=== PATIENT | female | born 1975 | race Caucasian/White ===

== ENCOUNTER 2019-05-25 08:17 | Emergency (ER) | payer OTHER, SELFPAY ==
--- NOTE | ~2019-05-25 | XR_ITS ---
EXAMINATION: XR chest 2V EXAM DATE: 05/25/2019 09:04 INDICATION: Frontal chest pain with shortness of breath. Nausea. TECHNIQUE: Frontal and lateral projections of the chest obtained and reviewed. Comparison is made to prior examination from 06/16/2016. FINDINGS: Cardiac monitoring device. Cervical fusion hardware. The lungs are clear. There are no pl eural effusions. The cardiomediastinal silhouette is within normal limits. There is no pneumothorax suspected. The bones and soft tissues are unremarkable. No change. IMPRESSION: No acute cardiopulmonary findings. Reviewed, dictated and finalized at location B. TORIAL MANAGER
[2019-05-25 08:22] VITALS: BP 145/98; PULSE 77; RESP 14; O2SAT 100
--- NOTE | 2019-05-25 08:29 | ECG_ITS ---
Measurements Intervals [place] Rate: 76 P: 56 IN: 135 QRS: -9 QRSD: 91 T: 42 QT: 354 QTc: 399 Interpretive Statements SINUS RHYTHM INCOMPLETE RIGHT BUNDLE BRANCH BLOCK LOW QRS VOLTAGE IN PRECORDIAL LEADS BASELINE ARTIFACT- I, II, III, AVR, AVL, V4-V6 BORDERLINE ECG Electronically Signed On 05-25-2019 8:37:37 BUILD TECHNICIAN by Sheng Adkins D.O.
--- NOTE | 2019-05-25 08:34 | ED.CHESTPAIN ---
HPI - Chest Pain General Chief Complaint: Chest Pain Stated Complaint: chest pain Time Seen by Provider: 05/25/19 08:33 Source: patient Mode of arrival: wheelchair Limitations: no limitations History of Present Illness HPI narrative: A 44 y/o female presents to the ED, with c/o intermittent CP x a couple days, that is worse today. She describes the CP as a squeezing in the lt side of her chest and she does not note any aggravating or alleviating factors. Pt states that when the CP began today she felt shaky and began feeling nauseous and vomiting. She denies having any SOB, diarrhea, cough, chest congestion, fever, or recent illnesses. Pt notes having a similar episode to this several years ago, but the Sx subsided on their own and she does not note seeking medical treatment for it. She denies taking any medications prior to arrival for her Sx. Pt reports a PMHx of asthma and hypothyroidism and notes having an allergy to Bactrim, Augmentin and Codeine. MD complaint: chest pain Pertinent past history: asthma Onset (ago): day(s) (a couple) Timing of current episode: episodic Prior episodes: Yes (several years ago) Pain location: left chest Quality: other (squeezing) Relieving factors: nothing Exacerbating factors: nothing Associated symptoms: nausea, vomiting and other (shaky) Treatment prior to arrival: none Related Data Allergies Allergy/AdvReac Type Severity Reaction Status Date / Time hydrocodone Allergy Intermediate BLURRED Verified 06/17/16 10:57 VISION naproxen Allergy Mild Unknown Verified 05/25/19 11:53 sulfamethoxazole Allergy Mild Unknown Unverified 05/25/19 11:53 trimethoprim Allergy Mild Unknown Unverified 05/25/19 11:53 acetaminophen Allergy Unknown BLINDNESS Verified 06/17/16 10:57 FEELING amoxicillin Allergy Unknown Unknown Verified 05/25/19 11:53 budesonide Allergy Unknown Unknown Verified 05/25/19 11:53 codeine Allergy Unknown Unknown Verified 05/25/19 11:53 erythromycin base Allergy Unknown Unknown Verified 05/25/19 11:53 latex Allergy Unknown Unknown Unverified 05/25/19 11:53 oxycodone Allergy Unknown TEMPORARY Verified 06/17/16 10:57 BLINDNESS penicillin V Allergy Unknown Unknown Verified 05/25/19 11:53 Penicillins Allergy Unknown Unknown Unverified 05/25/19 11:53 Sulfa (Sulfonamide Allergy Unknown Unknown Unverified 05/25/19 11:53 Antibiotics) POTASSIUM CLAVULANATE Allergy Mild Unknown Uncoded 05/25/19 11:53 FORMOTEROL FUMARATE Allergy Unknown Unknown Uncoded 05/25/19 11:53 Review of Systems Review of Systems: All systems reviewed & are unremarkable except as noted in HPI and below Constitutional: Constitutional: Denies fever(s) Cardiovascular: Cardiovascular: Reports chest pain (lt sided, squeezing) Respiratory: Respiratory: Denies chest congestion, Denies cough and Denies dyspnea Gastrointestinal: Gastrointestinal: Denies diarrhea, Reports nausea and Reports vomiting Neurologic: Reports other (shakiness) [facility] Past Medical History Medical History (Updated 05/25/19 @ 10:59 by Blayne Sinha MD) Anxiety Asthma Lorri's disease History of gastroesophageal reflux (GERD) History of palpitations Hypothyroidism Surgical History Surgical History H/O ovarian cystectomy lt ovary History of hysterectomy History of lumpectomy of left breast History of tonsillectomy Family History Family History Father Hypertension Asthma Family history of arthritis Social History Social History Smoking status: Never smoker Alcohol intake: never Comments Implanted Holter Monitor Exam Const: General: healthy appearing and no acute distress Nutritional Appearance: well nourished HENMT: Mouth: Yes lip normal and Yes moist mucous membranes Eyes: Conjunctivae: conjunctivae normal Pupils: Equal, round and
[2019-05-25] MEDS: ONDANSETRON INJ 4 MG/2 ML VIAL IV PUSH ×2 (08:55→11:28)
[2019-05-25 09:04] LABS: Basophils Absolute Auto 0.1 K/mm3 (0.0-0.1); Basophils Percent Auto 0.4 % (0.2-1.2); Eosinophils Percent Auto 0.3 % (0-4.4); Hematocrit 45.4 % (37.0-47.0); Hemoglobin 15.2 g/dL (12.0-15.0); Immature Granulocyte Absolute 0.04 K/mm3 (0.00-0.031); Immature Granulocyte Percent A 0.3 % (0-0.5); Lymphocytes Percent Auto 13.9 % (18.3-44.2); Mean Corpuscular HGB Conc 33.5 g/dl (32-36); Mean Corpuscular Volume 92.5 fl (80-100); Mean Platelet Volume 11.2 fl (7.4-10.4); Monocytes Absolute Auto 0.6 K/mm3 (0.1-0.6); Neutrophils Absolute Auto 9.2 K/mm3 (1.3-6.7); Neutrophils Percent Auto 80.1 % (45.5-73.1); Platelet Count Result 284 k/mm3 (150-375); Red Blood Count 4.91 M/mm3 (4.2-5.4); Red Cell Distribution Width 12.9 % (11.5-14.5); White Blood Count 11.5 K/mm3 (4.5-10.0)
[2019-05-25 09:15] LABS: INR 0.9; Partial Thromboplastin Time 20.4 SECONDS (22.3-36.8); Prothrombin Time 11.5 Seconds (11.1-14.7)
[2019-05-25 09:26] LABS: Alanine Aminotransferase 24 U/L (4-35); Albumin Level 4.8 g/dL (3.5-5.1); Alkaline Phosphatase 39 U/L (38-126); Aspartate Amino Transferase 29 U/L (14-36); Bilirubin,Total 0.6 mg/dL (0.2-1.3); Blood Urea Nitrogen 22 mg/dL (7-17); Calcium 9.5 mg/dL (8.4-10.2); Carbon Dioxide 25 mmol/L (22-30); Chloride 101 mmol/L (98-107); Estimated Glomerular Filt Rate > 60; Glucose 97 mg/dL (65-105); Lipase 145 U/L (23-300); Sodium 140 mmol/L (137-145)
[2019-05-25 09:31] LABS: Troponin I < 0.012 ng/mL (0.000-0.034)
[2019-05-25 11:00] VITALS: PULSE 78
[2019-05-25 11:20] VITALS: BP 133/100; PULSE 63; RESP 21; O2SAT 100
--- NOTE | 2019-05-25 11:21 | PC.NURSE ---
Assumed pt care at this time from RAINE Kramer at bedside. Pt resting comfortably.
[2019-05-25 11:59] LABS: Troponin I < 0.012 ng/mL (0.000-0.034)
[2019-05-25 12:08] VITALS: BP 135/81; PULSE 68; RESP 16; O2SAT 100
== END 2019-05-25 12:11 | disposition home or self-care (01) ==
PROVIDERS: Emergency Provider Emergency Medicine; PCP Family Medicine
DX: R07.89 Other chest pain (principal); J45.909 Unspecified asthma, uncomplicated; E03.9 Hypothyroidism, unspecified; E06.3 Autoimmune thyroiditis; K21.9 Gastro-esophageal reflux disease without esophagitis
CPT/HCPCS: 36415; 71046; 80053; 83690; 84484; 85025; 85610; 85730; 93005; 96374; 96376; 99284; A9270; J2405

== ENCOUNTER 2019-11-03 14:51 | Outpatient (CLI) | payer OTHER, SELFPAY ==
--- NOTE | ~2019-11-03 | MM_ITS ---
EXAMINATION: MM screening [facility] BI w valerie HISTORY: Screening TECHNIQUE: Craniocaudal and mediolateral oblique 3-D tomosynthesis images were obtained and synthetic 2-D images were generated. CAD analysis was submitted and interpreted. COMPARISON: Comparison to multiple prior studies sequentially, with oldest reviewed study dated 12/2010. BREAST PARENCHYMAL COMPOSITION: There are scattered areas of fibroglandular density. FINDINGS: There is no evidence of suspicious mass, calcification, or architectural distortion to sugg est malignancy in either breast. There has been no suspicious interval change. IMPRESSION: 1. No mammographic evidence of malignancy. 2. Recommend routine screening mammography in one year. BI-RADS Category 1: Negative Reviewed, dictated and finalized at location A.
== END 2019-11-03 14:52 | disposition home or self-care (01) ==
LOC: ANHIMG 14:53
PROVIDERS: PCP Internal Medicine; Visit Provider Obstetrics & Gynecology
DX: Z12.31 Encounter for screening mammogram for malignant neoplasm of breast (principal)
CPT/HCPCS: 77063; 77067

== ENCOUNTER 2020-12-09 09:53 | Emergency (ER) | payer OTHER, SELFPAY ==
--- NOTE | ~2020-12-09 | XR_ITS ---
EXAMINATION: XR chest 2V DATE: 12/09/2020 10:04 INDICATION: Left-sided chest pain TECHNIQUE: PA and lateral views of the chest are obtained. COMPARISON: 05/25/2019 FINDINGS: The lungs are free of acute opacities. There is no pleural effusion or pneumothorax. The ca rdiomediastinal silhouette is normal. There is mild thoracic spondylosis. There are changes of anteri or fusion in the lower cervical spine. A cardiac monitoring device is implanted in the left anterior chest wall. IMPRESSION: 1. No acute cardiopulmonary abnormality. Reviewed, dictated and finalized at location A.
--- NOTE | 2020-12-09 09:54 | ECG_ITS ---
Measurements Intervals [place] Rate: 74 P: 57 ME: 135 QRS: -3 QRSD: 86 T: 29 QT: 369 QTc: 411 Interpretive Statements SINUS RHYTHM INCOMPLETE RIGHT BUNDLE BRANCH BLOCK DELAYED PRECORDIAL R/S TRANSITION LOW VOLTAGE- PRECORDIAL LEADS BASELINE ARTIFACT- I, III, AVL BORDERLINE ECG Electronically Signed On 12-09-2020 10:32:07 CDT by Sheng Adkins D.O.
[2020-12-09 10:17] VITALS: BP 123/66; PULSE 75; RESP 18; TEMP 37.1; O2SAT 100
[2020-12-09 10:53] LABS: Basophils Absolute Auto 0.1 K/mm3 (0.0-0.1); Basophils Percent Auto 1.1 % (0.2-1.2); Eosinophils Absolute Auto 0.2 K/mm3 (0-0.3); Eosinophils Percent Auto 3.3 % (0-4.4); Hematocrit 39.9 % (37.0-47.0); Hemoglobin 13.8 g/dL (12.0-15.0); Immature Granulocyte Absolute 0.01 K/mm3 (0.00-0.031); Immature Granulocyte Percent A 0.2 % (0-0.5); Lymphocytes Absolute Auto 1.52 K/mm3 (0.9-3.2); Lymphocytes Percent Auto 23.9 % (18.3-44.2); Mean Corpuscular HGB Conc 34.6 g/dl (32-36); Mean Corpuscular Hemoglobin 31.2 pg (26-34); Mean Corpuscular Volume 90.1 fl (80-100); Mean Platelet Volume 11.4 fl (7.4-10.4); Monocytes Absolute Auto 0.3 K/mm3 (0.1-0.6); Monocytes Percent Auto 4.1 % (2.6-8.5); Neutrophils Absolute Auto 4.3 K/mm3 (1.3-6.7); Neutrophils Percent Auto 67.4 % (45.5-73.1); Platelet Count Result 224 k/mm3 (150-375); Red Blood Count 4.43 M/mm3 (4.2-5.4); Red Cell Distribution Width 12.1 % (11.5-14.5); White Blood Count 6.4 K/mm3 (4.5-10.0)
[2020-12-09 11:02] LABS: INR 0.9
[2020-12-09 11:03] LABS: Partial Thromboplastin Time 29.7 SECONDS (22.3-36.8)
--- NOTE | 2020-12-09 11:13 | ED.CHESTPAIN ---
HPI - Chest Pain General Chief Complaint: Chest Pain Stated Complaint: CHEST PAIN Time Seen by Provider: 12/09/20 11:12 History of Present Illness HPI narrative: Left sided chest pain since this morning. Worsened while at work. Exacerbated by using the left arm. Tender to touch. No SOB, nausea, vomiting, cough, fever. Related Data Allergies Allergy/AdvReac Type Severity Reaction Status Date / Time hydrocodone Allergy Intermediate BLURRED Verified 12/09/20 11:48 VISION naproxen Allergy Mild Unknown Verified 12/09/20 11:48 sulfamethoxazole Allergy Mild Unknown Verified 12/09/20 11:48 trimethoprim Allergy Mild Unknown Verified 12/09/20 11:48 acetaminophen Allergy Unknown BLINDNESS Verified 12/09/20 11:48 FEELING amoxicillin Allergy Unknown Unknown Verified 12/09/20 11:48 budesonide Allergy Unknown Unknown Verified 12/09/20 11:48 codeine Allergy Unknown Unknown Verified 12/09/20 11:48 erythromycin base Allergy Unknown Unknown Verified 12/09/20 11:48 latex Allergy Unknown Unknown Verified 12/09/20 11:48 oxycodone Allergy Unknown TEMPORARY Verified 12/09/20 11:48 BLINDNESS penicillin V Allergy Unknown Unknown Verified 12/09/20 11:48 Penicillins Allergy Unknown Unknown Verified 12/09/20 11:48 Sulfa (Sulfonamide Allergy Unknown Unknown Verified 12/09/20 11:48 Antibiotics) aspirin Allergy Difficulty Verified 12/09/20 11:48 Breathing POTASSIUM CLAVULANATE Allergy Mild Unknown Uncoded 05/25/19 11:53 FORMOTEROL FUMARATE Allergy Unknown Unknown Uncoded 05/25/19 11:53 Review of Systems Review of Systems: All systems reviewed & are unremarkable except as noted in HPI and below Gastrointestinal: Gastrointestinal: Denies abdominal pain and Denies nausea Genitourinary: Genitourinary: Reports no additional female genitourinary complaints Musculoskeletal: Musculoskeletal: Denies back pain Neurologic: Reports system reviewed and no additional complaints, except as documented Psychiatric: Psychiatric: Reports anxiety PMFSH Past Medical History Medical History Anxiety Asthma Lorri's disease History of gastroesophageal reflux (GERD) History of palpitations Hypothyroidism Surgical History Surgical History H/O ovarian cystectomy lt ovary History of hysterectomy History of lumpectomy of left breast History of tonsillectomy Family History Family History Father Hypertension Asthma Family history of arthritis Social History Social History Smoking status: Never smoker Alcohol intake: never Exam Const: General: healthy appearing, no acute distress and alert Orientation/consciousness: patient oriented x3 HENMT: Head: normal to inspection Chest: Chest palpation & inspection: tenderness pectoral muscle on the left Resp: Effort & Inspection: normal respiratory effort Auscultation: clear to auscultation bilaterally, no rales, no rhonchi and no wheezes Cardio: Jugular venous distension: no JVD Rate: regular rate Rhythm: regular rhythm Heart sounds: no murmurs GI: Inspection: non-distended GI Palp: Yes Soft to palpation and No Tenderness to palpation present (GI) Skin: General skin exam: normal color Neuro: General: patient oriented x3, moves all extremities, no focal motor deficits and CN's II-XI intact bilaterally Speech: normal speech Gait exam (Neuro): Normal gait present Extrem: General: normal to inspection Psych: Appearance: well kempt Affect: Anxious affect present Course Vital Signs Vital signs: Vital Signs Temperature 37.1 C 12/09/20 10:17 Pulse Rate 75 12/09/20 10:17 Respiratory Rate 18 12/09/20 10:17 Blood Pressure 123/66 12/09/20 10:17 Pulse Oximetry 100 12/09/20 10:17 Temperature 37.1 C 12/09/20 10:17 Pulse Rate 73
[2020-12-09 11:14] LABS: Anion Gap 8 mmol/L (8-16); Blood Urea Nitrogen 16 mg/dL (7-17); Carbon Dioxide 23 mmol/L (22-30); Chloride 104 mmol/L (98-107); Estimated CRCL calculation 87 ml/min; Estimated Glomerular Filt Rate > 60; Glucose 100 mg/dL (65-110); Potassium 3.8 mmol/L (3.4-5.0); Sodium 135 mmol/L (137-145)
[2020-12-09 11:24] LABS: Troponin I < 0.012 ng/mL (0.000-0.034)
[2020-12-09] MEDS: KETOROLAC (*BKC) 60 MG/2 ML VIAL IM (11:51)
[2020-12-09 12:34] VITALS: BP 123/73; PULSE 73; RESP 18; O2SAT 100
== END 2020-12-09 12:35 | disposition home or self-care (01) ==
PROVIDERS: Emergency Medicine; Emergency Provider Emergency Medicine; PCP Internal Medicine
DX: R07.89 Other chest pain (principal); I45.10 Unspecified right bundle-branch block; R94.31 Abnormal electrocardiogram [ECG] [EKG]; E06.3 Autoimmune thyroiditis; J45.909 Unspecified asthma, uncomplicated; K21.9 Gastro-esophageal reflux disease without esophagitis; E03.9 Hypothyroidism, unspecified
CPT/HCPCS: 36415; 71046; 80048; 84484; 85025; 85610; 85730; 93005; 96372; 99284; J1885

== ENCOUNTER 2020-12-31 14:38 | Outpatient (CLI) | payer OTHER, SELFPAY ==
--- NOTE | ~2020-12-31 | MM_ITS ---
EXAMINATION: MM screening [facility] BI w valerie HISTORY: Screening mammogram TECHNIQUE: Craniocaudal and mediolateral oblique 3-D tomosynthesis images were obtained and synthetic 2-D images were generated. CAD analysis was submitted and interpreted. COMPARISON: 11/03/2019, 05/29/2016, 12/11/2014 BREAST PARENCHYMAL COMPOSITION: The breasts are heterogeneously dense, which may obscure small masses . FINDINGS: There is no evidence of suspicious mass, calcification, or architectural distortion to sugg est malignancy in either breast. There has been no suspicious interval change. IMPRESSION: 1. No mammographic evidence of malignancy. 2. Recommend routine screening mammography in one year. BI-RADS Category 1: Negative Reviewed, dictated and finalized at location A.
== END 2020-12-31 14:39 | disposition home or self-care (01) ==
PROVIDERS: PCP Internal Medicine; Visit Provider Obstetrics & Gynecology
DX: Z12.31 Encounter for screening mammogram for malignant neoplasm of breast (principal)
CPT/HCPCS: 77063; 77067

== ENCOUNTER 2022-06-10 08:19 | Emergency (ER) | payer OTHER, SELFPAY ==
--- NOTE | ~2022-06-10 | XR_ITS ---
EXAMINATION: XR chest 2V DATE: 06/10/2022 09:07 INDICATION: Chest pain. Shortness of breath. TECHNIQUE: Frontal and lateral views of the chest were obtained. COMPARISON: Chest 2 views 12/09/2020 FINDINGS: There is no pneumonia, pleural effusion, or pneumothorax. The heart size is normal. There i s a prominent right paracardial fat pad. An electronic device overlies the chest. There is an electro delfina implant in left anterior chest wall. There are changes of anterior fusion procedure in cervical s pine. IMPRESSION: 1. No acute cardiopulmonary disease. Reviewed, dictated and finalized at location A. ICE AIDE
--- NOTE | ~2022-06-10 | CT_ITS ---
Clinical Indication: Pulmonary embolus CT Scan of the Chest with Contrast: Technique: Contiguous sections were acquired throughout the chest after intravenous administration of 100 cc of Omnipaque 350. Dose reduction technique was used on this scan by utilizing automated expos ure control and iterative reconstruction technique. The dose-length product (DLP) was 325.95 mGy-cm. Findings: There is no evidence of any significant mediastinal, hilar or axillary lymphadenopathy. There is no f illing defect in the pulmonary arterial tree to suggest pulmonary embolus. There is no evidence of ao rtic dissection or aneurysm. There is no evidence of pleural or pericardial effusion. There is a 1.2 cm benign-appearing lingular nodule, with central coarse calcification. No other pulmo nary abnormality seen. Images through the upper abdomen reveal no abnormalities. Impression: No evidence of pulmonary embolus, aortic dissection, or aortic aneurysm. Benign 1.2 cm lingular nodule, as detailed above. Reviewed, dictated and finalized at [facility]. T THINNER MACHINE OPERATOR Impression: No evidence of pulmonary embolus, aortic dissection, or aortic aneurysm. Benign 1.2 cm lingular nodule, as detailed above.
[2022-06-10 08:17] VITALS: BP 122/86; PULSE 70; RESP 16; TEMP 36.8; O2SAT 100
--- NOTE | 2022-06-10 08:32 | ECG_ITS ---
Measurements Intervals [place] Rate: 66 P: 55 OR: 134 QRS: 5 QRSD: 89 T: 37 QT: 390 QTc: 410 Interpretive Statements SINUS RHYTHM BASELINE ARTIFACT- I, II, AVR, AVL NORMAL ECG COMPARED TO ECG 12/09/2020 10:09:17 NO SIGNIFICANT CHANGES Electronically Signed On 06-10-2022 9:16:32 AUTOMATION AND CONTROLS INSTRUCTOR by Sheng Adkins D.O.
[2022-06-10 08:35] VITALS: PULSE 66
[2022-06-10 08:43] LABS: Basophils Absolute Auto 0.1 K/mm3 (0.0-0.1); Eosinophils Absolute Auto 0.3 K/mm3 (0-0.3); Eosinophils Percent Auto 4.1 % (0-4.4); Hematocrit 39.3 % (37.0-47.0); Hemoglobin 13.6 g/dL (12.0-15.0); Immature Granulocyte Absolute 0.02 K/mm3 (0.00-0.031); Immature Granulocyte Percent A 0.3 % (0-0.5); Lymphocytes Absolute Auto 1.23 K/mm3 (0.9-3.2); Lymphocytes Percent Auto 20.2 % (18.3-44.2); Mean Corpuscular HGB Conc 34.6 g/dl (32-36); Mean Corpuscular Hemoglobin 31.6 pg (26-34); Mean Corpuscular Volume 91.2 fl (80-100); Mean Platelet Volume 11.1 fl (7.4-10.4); Monocytes Absolute Auto 0.4 K/mm3 (0.1-0.6); Monocytes Percent Auto 5.7 % (2.6-8.5); Neutrophils Absolute Auto 4.2 K/mm3 (1.3-6.7); Neutrophils Percent Auto 68.7 % (45.5-73.1); Platelet Count Result 198 k/mm3 (150-375); Red Blood Count 4.31 M/mm3 (4.2-5.4); Red Cell Distribution Width 12.5 % (11.5-14.5); White Blood Count 6.1 K/mm3 (4.5-10.0)
[2022-06-10 08:44] VITALS: O2SAT 100
[2022-06-10 08:49] LABS: Prothrombin Time 12.6 Seconds (11.1-14.7)
[2022-06-10 08:50] LABS: Partial Thromboplastin Time 29.7 SECONDS (22.3-36.8)
[2022-06-10 09:00] LABS: Alanine Aminotransferase 22 U/L (6-35); Albumin Level 4.1 g/dL (3.5-5.1); Alkaline Phosphatase 37 U/L (38-126); Anion Gap 3 mmol/L (8-16); Aspartate Amino Transferase 29 U/L (14-36); Bilirubin,Total 0.5 mg/dL (0.2-1.3); Blood Urea Nitrogen 16 mg/dL (7-17); Calcium 8.8 mg/dL (8.4-10.2); Carbon Dioxide 26 mmol/L (22-30); Chloride 107 mmol/L (98-107); Estimated Glomerular Filt Rate > 60; Glucose 95 mg/dL (65-110); Lipase 94 U/L (23-300); Potassium 4.1 mmol/L (3.4-5.0); Sodium 136 mmol/L (137-145); Troponin I < 0.012 ng/mL (0.000-0.034)
--- NOTE | 2022-06-10 09:24 | ED.GENADULT ---
HPI - General Adult General Chief complaint: Chest Pain Stated complaint: CP & SOB x 14 hours Time Seen by Provider: 06/10/22 08:19 History of Present Illness HPI narrative: 47-year-old female presenting to the emergency department for evaluation of left-sided chest pain. Patient states last night she was having left-sided chest pain. Patient describes this as a chest tightness. Patient reports that the symptoms did improve but then worsened again this morning at work. Patient reports she had a sensation of feeling flushed with dizziness. Patient states that she follows up with a customer experience professional at [employer]. Patient had an echo and a stress test on Wednesday for similar symptoms. Patient denies any prior history of RI. Patient denies any history of PE or DVT. Related Data Allergies Allergy/AdvReac Type Severity Reaction Status Date / Time hydrocodone Allergy Intermediate BLURRED Verified 12/09/20 11:48 VISION naproxen Allergy Mild Unknown Verified 12/09/20 11:48 sulfamethoxazole Allergy Mild Unknown Verified 12/09/20 11:48 trimethoprim Allergy Mild Unknown Verified 12/09/20 11:48 acetaminophen Allergy Unknown BLINDNESS Verified 12/09/20 11:48 FEELING amoxicillin Allergy Unknown Unknown Verified 12/09/20 11:48 budesonide Allergy Unknown Unknown Verified 12/09/20 11:48 codeine Allergy Unknown Unknown Verified 12/09/20 11:48 erythromycin base Allergy Unknown Unknown Verified 12/09/20 11:48 latex Allergy Unknown Unknown Verified 12/09/20 11:48 oxycodone Allergy Unknown TEMPORARY Verified 12/09/20 11:48 BLINDNESS penicillin V Allergy Unknown Unknown Verified 12/09/20 11:48 Penicillins Allergy Unknown Unknown Verified 12/09/20 11:48 Sulfa (Sulfonamide Allergy Unknown Unknown Verified 12/09/20 11:48 Antibiotics) aspirin Allergy Difficulty Verified 12/09/20 11:48 Breathing POTASSIUM CLAVULANATE Allergy Mild Unknown Uncoded 05/25/19 11:53 FORMOTEROL FUMARATE Allergy Unknown Unknown Uncoded 05/25/19 11:53 Review of Systems Review of Systems: CONSTITUTIONAL: See HPI EYES: Denies visual changes, redness, or discharge. ENT: Denies rhinorrhea, congestion, sore throat, or otalgia. CARDIOVASCULAR: See HPI RESPIRATORY: Denies cough or dyspnea. GASTROINTESTINAL: Denies abdominal pain, nausea, vomiting, or diarrhea. GENITOURINARY: Denies dysuria or hematuria. SKIN: Denies rash or itching. MUSCULOSKELETAL: Denies back pain, joint pain, or myalgia. NEUROLOGIC: Denies headache, numbness, or weakness. [facility] Past Medical History Medical History (Updated 06/10/22 @ 19:10 by Corbin Caicedo MD) Anxiety Asthma Lorri's disease History of gastroesophageal reflux (GERD) History of palpitations Hypothyroidism Implantable loop recorder present (12/30/12) MRSA carrier Surgical History Surgical History (Updated 03/11/22 @ 11:09 by Netta Cruz) History of breast biopsy 2008 (R) breast--benign 2012 (L) breast--benign History of dilation and curettage 12/01/12 hscope d&c/Novasure endometrial ablation/tubal ligation--benign 06/18/15 hscope d&c--abnormal bleeding History of endometrial ablation (12/01/12) hscope d&c/Novasure endometrial ablation/tubal ligation--benign History of fusion of cervical spine (~2013) C-4, C-5, C-6 History of left salpingo-oophorectomy (12/03/11) LLQ pain, left adnexal cyst History of robot-assisted laparoscopic hysterectomy (07/25/15) RA TLH--menometrorrhagia, enlarged uterine--benign findings History of tonsillectomy History of tubal ligation (12/01/12) Family History Family History (Updated 03/11/22 @ 11:10 by Netta Cruz) Father Hypertension Asthma Family history of arthritis Other Acute myocardial infarction maternal aunt Cerebrovascular accident maternal aunt Social History Social History Smoking status: Never smoker Alcohol intake: never Exam Narrative: APPEARANCE: We
[2022-06-10 09:50] VITALS: BP 122/74; PULSE 73; RESP 16; O2SAT 100
[2022-06-10 11:27] VITALS: BP 112/64; PULSE 68; RESP 14; O2SAT 100
[2022-06-10 11:57] LABS: Troponin I < 0.012 ng/mL (0.000-0.034)
[2022-06-10 12:42] VITALS: BP 110/72; PULSE 78; RESP 16; O2SAT 100
== END 2022-06-10 12:44 | disposition home or self-care (01) ==
PROVIDERS: Emergency Provider Emergency Medicine; PCP Internal Medicine
DX: R07.9 Chest pain, unspecified (principal); R42 Dizziness and giddiness; Z98.1 Arthrodesis status
CPT/HCPCS: 36415; 71046; 71275; 80053; 83690; 84484; 85025; 85610; 85730; 93005; 99284; Q9967

== ENCOUNTER 2024-03-21 12:30 | Outpatient (CLI) | payer OTHER, SELFPAY ==
--- NOTE | ~2024-03-21 | PE_ITS ---
EXAMINATION: PET skull to mid thigh DATE: 03/21/2024 15:19 INDICATION: Neck nodules. Abnormal findings on diagnostic imaging. TECHNIQUE: Blood glucose level was 88 mg/dL. 10.929 mCi of 18-fluorodeoxyglucose (18-FDG) was adminis tered i.v. Low dose computed tomography (CT) images were acquired from the base of the brain to the p roximal thighs for attenuation correction and anatomic localization. Positron emission tomography (PE T) images were acquired in the same distribution beginning 50 minutes after injection. Images includi ng fused PET/CT images were reconstructed in axial, coronal, and sagittal planes. Automated exposure control technique was employed. The dose-length product was 1210.15mGy-cm. COMPARISON: Chest CT dated 06/10/2022 FINDINGS: Head/neck: There is symmetric increased activity in the oral cavity, lingual tonsils, parotid glands, submandib ular glands, laryngeal muscles and ocular muscles without CT correlate, likely physiologic. No pathol ogically enlarged cervical lymphadenopathy or suspicious foci of increased FDG uptake in the visualiz ed head or neck. Chest: Centrally calcified nodule at the lingula consistent with old granulomatous disease. There is mild at electasis the medial aspect of both the lingula and right middle lobes. No suspicious pulmonary nodul es, pneumonia, pulmonary edema or pleural effusion. Heart size is normal. No pericardial or pleural e ffusion. Thoracic aorta is normal in caliber. No pathologically enlarged or FDG avid thoracic lymphad enopathy. Left pectoral subcutaneous implantable manager coding. Abdomen/pelvis/proximal thighs: Physiologic renal accumulation and excretion of FDG activity in the kidneys, bladder and along portio ns of ureters. Normal degree and heterogenous pattern of increased uptake throughout the liver withou t radiologic correlate or dominant FDG avid lesion. Small splenic calcification also consistent with old granulomatous disease. The gallbladder, pancreas and bilateral adrenal glands are normal. Mild up take scattered throughout the bowels without radiologic correlate, also likely physiologic. Normal ap pendix. The uterus is not identified and has likely been surgically resected. Mild uptake overlying t he bilateral greater trochanters consistent with trochanteric bursitis. No other abnormal foci of inc reased FDG uptake or pathologically enlarged lymphadenopathy in the abdomen, pelvis or proximal thigh s. Musculoskeletal: C4-C6 anterior spinal fusion with anterior plate and screw fixation. No suspicious lytic, blastic or abnormally FDG avid bone lesions. IMPRESSION: 1. No abnormal masses, pathologically enlarged lymphadenopathy or FDG avid lesions identified in the neck, chest, abdomen or pelvis to suggest primary malignancy or metastatic disease. Reviewed, dictated and finalized at location A. E WORKER IMPRESSION: 1. No abnormal masses, pathologically enlarged lymphadenopathy or FDG avid lesi ons identified in the neck, chest, abdomen or pelvis to suggest primary maligna ncy or metastatic disease.
[2024-03-21 13:55] LABS: Glucose Point of Care 88 mg/dl (65-105)
== END 2024-03-21 12:31 | disposition home or self-care (01) ==
PROVIDERS: PCP Physician Assistant Medical; Visit Provider Physician Assistant Medical
DX: R93.89 Abnormal findings on diagnostic imaging of other specified body structures (principal)
CPT/HCPCS: 78815; A9552

== ENCOUNTER 2024-09-01 01:03 | Day surgery (SDC) | payer OTHER, SELFPAY ==
[2024-08-28 14:44] VITALS: BMI 25.4
--- OUTSIDE RECORDS SUMMARY | 2024-09-01 01:08 | XMS_ITS | Encounter Summary ---
Author Organization [facility] Address [address] [place] [address] Care Team Providers Care Distribution Center Manager Name Role Phone Josh Wolf MD Primary Care Provider [phone] Aj Gautam Primary Care Provider [phone] Encounter Details Date Type Department Care Team (Late st Contact Info) Description 06/15/2022 [facility] Case Management [id number] [place] [address] [place] [address] [facility] [address] [place] [address] Social History Tobacco Use Types Packs/Day Years Used Date Smoking Tobacco: Never Smokeless Tobacco: Never Comments No Sex and Gender Information Value Date Recorded Sex Assigned at Not on file Legal Sex Female 4:21 PM TRANSFORMATION ANALYST Gender Identity Not on file Sexual Orientation Straight 02/08/2024 3: 46 PM CDT documented as of this encounter Plan of Treatment Not on file documented as of this encounter Visit Diagnoses Not on filedocumented in this encounter Additional Health Concerns Infection Onset Date Last Indicated Resolved Time COVID: Suspected 09/17/2022 09/17/2022 09/17/2022 3:00 PM CDT documented as of this encounter Care Teams Distribution Center Manager Relationship Specialty Start Date End Date Josh Wolf MD [address] [address] PCP - General Internal Medicine 10/29/21 06/27/24 Aj Gautam PA [address] [place] [address] PCP - General Physician Machine Molder 06/28/24 documented as of this encounter
--- OUTSIDE RECORDS SUMMARY | 2024-09-01 01:09 | XMS_ITS | Referral Summary ---
Author Organization [facility] Address [address] [place] [id number] Care Team Providers Care Hand Former Helper Name Role Phone Aj Gautam Primary Care Provider [phone] Encounters Date Type Department Care Team Description 07/14/2024 Telephone [facility] Diabetes and Endocrinology [facility] [place] [address] Jean Paul Amanda MD 06/29/2024 Results Follow-Up [facility] Special[facility] of [address] [address] Jean Paul Amanda MD Thyroid Function [place] 06/28/2024 3:10 PM CDT Lab [address] [address] [place]ri thyroiditis 06/28/2024 2:30 PM CDT Office Visit [facility] Special[facility] of [address] [address] Jean Paul Amanda MD Lorri thyroiditis (Primary Dx) from Last 3 Months Allergies Active Allergy Reactions Criticality Noted Date Comments Amoxicillin-Pot Clavulanate Anaphylaxis High 09/25/2021 Sulfamethoxazole-Trimet hoprim Anaphylaxis High 09/25/2021 Clavulanic Acid Rash Medium 04/15/2012 Codeine Anaphylaxis High 09/17/2022 Erythromycin Nausea & Vomiting Low 04/15/2012 Hydrocodone-Acetaminoph en Vomiting Medium 01/01/2022 Latex Rash Medium 09/25/2021 Oxycodone-Acetaminophen Other (See comments),Vision changes High 12/02/2012 Made me go blind for 6 hours Sulfa Anaphylaxis High 10/28/2012 Medications albuterol HFA (PROVENTIL HFA,VENTOLIN HFA,PROAIR HFA) 90 mcg/actuation inhaler Inhale 2 puffs every 6 (six) hours as needed for wheezing Active ondansetron (ZOFRAN) 4 mg tabletIndication s:Nausea and vomiting, unspecified vomiting type Take 1 tablet (4 mg total) by mouth every 8 (eight) hours as needed for nausea or vomiting 20 tablet 2 Active fluticasone propionate (FLONASE) 50 mcg/actuation nasal spray Administer 1 spray into each nostril daily as needed for rhinitis or allergies Active magnesium oxide (MAG-OX) 400 mg (241.3 mg elemental magnesium) tablet Take 1 tablet (400 mg total) by mouth daily 3 Active dilTIAZem (CARDIZEM) 30 mg tablet Take 1 tablet (30 mg total) by mouth 3 (three) times a day Pt takes once a day. 3 Active isosorbide mononitrate ER (IMDUR) 30 mg 24 hr tablet Take 1 tablet (30 mg total) by mouth daily 4 Active nitroglycerin (NITROSTAT) 0.[address] 1 tablet (0.4 mg total) under the tongue every 5 (five) minutes as needed for chest pain 4 Active ranolazine ER (RANEXA) 500 mg 12 hr tablet Take 1 tablet (500 mg total) by mouth 2 (two) times a day 4 Active fluticasone propion-salmeter oL (ADVAIR DISKUS) 250-50 mcg/dose diskus inhaler Inhale 1 puff 2 (two) times a day Rinse mouth with water after use. Do not swallow. 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 Prescription for antibiotics sent. Reviewed potential benefits and potential side effects of azithromycin. Aware to complete full course of antibiotic. To continue otc medications. Discussed nasal saline rinses/neti pots. Discussed need to increase fluid intake. May use 1 teaspoon honey every 4 hours as needed for cough, encourage use of hot tea or hot water with honey. May use vicks vapo rub on chest and bottom of feet before bed. Cool mist humidifier in bedroom. Lots of water, rest and handwashing, no sharing cups or utensils. If symptoms worsen including but not limited to shortness of breath, chest pain and/or increasing pain please notify office or present to Emergency Department. 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 Unfortunately has limited options due to insurance coverage which has declined most of the inhalers required for treatment. She will continue Dulera 2 Adult-onset obesity 10/03/2015 09/17/2022 Chronic rhinitis 10/03/2015 09/17/2022 Snores 10/03/2015 09/17/2022 Disease of pericardium 01/20/2013 3 Dizziness and giddiness 12/11/2012 09/18/19 23 Social History Tobacco Use Types Packs/Day Years Used Date Smoking Tobacco: Never Smokeless Tobacco: Never Tobacco Cessation:Counseling Given: Not Answered Personal Safety Answer Date Recorded Have you ever been in or are you currently in a harmful physical or emotional relationship or is someone making you feel afraid or unsafe? Denies 01/20/2024 Comments No Sex and Gender Information Value Date Recorded Sex Assigned at Not on file Legal Sex Female 4:21 PM FIELD ADJUSTER Gender Identity Not on file Sexual Orientation Straight 02/08/2024 3: 46 PM CDT Last Filed Vital Signs Vital Sign Reading Time Taken Comments Blood Pressure 118/72 06/28/2024 2:02 PM CDT Pulse 73 06/28/2024 2:02 PM CDT Temperature 36.6 C (97.8 F) 01/20/2024 8:24 AM CDT Respiratory Rate 15 06/28/2024 2:02 PM CDT Oxygen Saturation 96% 01/20/2024 4:05 PM CDT Inhaled Oxygen Concentration - - Weight 81.2 kg (179 lb) 06/28/2024 2:02 PM CDT Height 149.9 cm (4' 11 ) 06/28/2024 2:02 PM CDT Body Mass Index 36.15 06/28/2024 2:02 PM CDT Plan of Treatment Not on file Medical Devices Implanted Type Area Partition Assembly Machine Operator Device Identifier Shelf Expiration Date Model / Serial / Lot Implantable Loop Recorder Implantable Loop Recorder Left: Chest Procedures Procedure Name Priority Date/Time Associated Diagnosis Comments THYROID FUNCTION CASCADE Routine 06/28/2024 3:05 PM CDT Lorri thyroiditis from Last 3 Months Results * Thyroid Function [place] (06/28/2024 3:05 PM CDT) TSH 3.92 0.30 - 4.20 mcIUnit/mL Blood 06/28/2024 3:05 PM CDT 06/28/2024 5:31 PM CDT us Aiyanaja Guanaco Blanc MD LAB BLOOD ORDERABLE S Final Result [facility] [id number] [address] Department [place] [address] from Last 3 Months Insurance [facility] [employer] Advance Directives For more information, please contact: [phone] * Full Code (Latest Code Status on File) Date Activated Date Inactivated Comments 01/20/2024 11:40 AM 01/20/2024 8:33 PM Care Teams Hand Former Helper Relationship Specialty Start Date End Date Aj Gautam PA [address] [place] [address] PCP - General Physician Screen Cleaner 06/28/24
--- OUTSIDE RECORDS SUMMARY | 2024-09-01 01:09 | XMS_ITS | CONTINUITY OF CARE DOCUMENT ---
Author Name mercedes long Address Unknown Organization [facility] Address [address] [place] [address] Phone [phone] Care Team Providers Care Maid Supervisor Name Role Phone Concha Delgadillo MD Unavailable Alpesh Funesar Unavailable [phone] Dain VALENTINE Aj Unavailable [phone] PROBLEMS Condition Status Date Provider Notes Shortness of breath (SOB) active Concha nagy MD Asthma active Concha Delgadillo MD CHEST PAIN- 10/22 ECHO EF 60 active ? Concha Delgadillo MD PALPITATIONS-10/22 NUC NEG active ? Concha nagy MD GOITER active ? Concha Delgadillo MD RUPERT'S THYROIDITIS active ? 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 change out Biotronik III 07/23/22 ( MRI safe) active Apple Robertson UNSPECIFIED DISEASE OF PERICARDIUM completed - Valdez Garcia SVT, paroxysmal active Valdez Garcia Hypertension active Valdez Garcia Near syncope active Valdez Garcia Groin pain active Valdez Garcia Bifascicular block active Kin Rangel Cardiology examination active Valdez Garcia Thoracic outlet syndrome, left completed - Valdez Staleymaximus ENCOUNTERS Date Type Provider Location Encounter Diag [facility]ahy - In-person encounter Office Visit Concha Delgadillo MD [facility] UNSPECIFIED DISEASE OF PERICARDIUMThoracic outlet syndrome, left - In-person encounter Office Visit Joe Moise MD [facility] - In-person encounter Office Visit Concha Delgadillo MD [facility] - In-person encounter Office Visit oCnnor Neves MD [facility] - In-person encounter Office Visit Concha Delgadillo MD [facility] Cardiology examination - In-person encounter Office Visit Connor Neves MD [facility] Office - In-person encounter Office Visit Concha Delgadillo MD [facility] Bifascicular block - In-person encounter Office Visit Concha Delgadillo MD [facility] Office - In-person encounter Office Visit Concha Delgadillo MD [facility] - In-person encounter Office Visit Concha Delgadillo MD [facility] - In-person encounter Office Visit Concha Delgadillo MD [facility] ABNORMAL HEART RHYTHMS-11/22 EVENT SR HR 64-143HypertensionNear syncopeGroin pain - In-person encounter Office Visit Concha Delgadillo MD [facility] Office - In-person encounter Office Visit Concha Delgadillo MD [facility] - In-person encounter Office Visit Concha Delgadillo MD [facility] - In-person encounter Office Visit Concha Escobars Office - In-person encounter Office Visit Concha Delgadillo MD [facility] SVT, paroxysmal - In-person encounter Office Visit Manas Fortune MD [facility] - In-person encounter Office Visit Concha Delgadillo MD [facility] - In-person encounter Office Visit Concha Delgadillo MD [facility] - In-person encounter Office Visit Concha Delgadillo MD [facility] - In-person encounter Office Visit Concha Delgadillo MD [facility] - In-person encounter Office Visit Concha Delgadillo MD [facility] - In-person encounter Office Visit Concha Delgadillo MD [facility] - In-person encounter Office Visit Concha Delgadillo MD [facility] LOOP RECORDER [place]/ Loop recorder change out Biotronik III 07/23/22 ( MRI safe) - In-person encounter Office Visit Concha Delgadillo MD [facility] CHEST PAIN- 10/22 ECHO EF 60PALPITATIONS-10/22 NUC NEG - In-person encounter Office Visit Concha Delgadillo MD [facility] CHEST PAIN- 10/22 ECHO EF 60PALPITATIONS-7 NUC NEGGOITERHASHIMOTO'S THYROIDITIS VITAL SIGNS Date Observation Value Provider Body Mass Index (Ratio) 35.74 kg/m2 Valdez Garcia blood pressure, diastolic 77 mm[Hg] Gary Wynne blood pressure, systolic 127 mm[Hg] Paula Wynne oxygen saturation, oximetry 96 % Liliana Wynne pulse rate 64 /min Liliana Wynne respiratory rate E&M 12 /min Liliana Lawton weight E&M 183 [lb_av] Liliana Lawton height E&M 60 [in_i] Liliana Lawton blood pressure, cuff size regular Gary kelly Lawton Body Mass Index (Ratio) 34.56 kg/m2 Lucy Moise MD blood pressure, diastolic 75 mm[Hg] Le nkLog blood pressure, systolic 111 mm[Hg] Ina og respiratory rate E&M 14 /min Liliana Lawton blood pressure, diastolic 75 mm[Hg] Gary kelly Lawton blood pressure, systolic 111 mm[Hg] Paula escalera Lawton oxygen saturation, oximetry 98 % Liliana Lawton pulse rate 67 /min Liliana Lawton weight E&M 177 [lb_av] Liliana Lawton height E&M 60 [in_i] Liliana Lawton blood pressure, cuff size regular Gary kelly Lawton Body Mass Index (Ratio) 33.98 kg/m2 Valdez Garcia pulse rate 74 /min Aishwarya Buras blood pressure, cuff size regular Kurt palm Kuhn blood pressure, diastolic 78 mm[Hg] Ta bitha Buras blood pressure, systolic 112 mm[Hg] Tab itha Kuhn oxygen saturation, oximetry 100 % Aishwarya Kuhn weight E&M 174 [lb_av] Aishwarya Kuhn respiratory rate E&M 12 /min Aishwarya Kuhn height E&M 60 [in_i] Aishwarya Kuhn Body Mass Index (Ratio) 34.13 kg/m2 Kaushal Neves MD pulse rate 85 /min Aishwarya Kuhn blood pressure, cuff size regular Kurt bitrachael Kuhn blood pressure, diastolic 78 mm[Hg] Ta bitha Kuhn blood pressure, systolic 112 mm[Hg] Tab pinkya Kuhn oxygen saturation, oximetry 98 % Aishwarya Kuhn respiratory rate E&M 12 /min Aishwarya Kuhn weight E&M 174.8 [lb_av] Aishwarya Kuhn height E&M 60 [in_i] Aishwarya Kuhn Body Mass Index (Ratio) 33.59 kg/m2 Kaushal Neves MD Body Mass Index (Ratio) 33.78 kg/m2 Valdez Garcia blood pressure, diastolic 78 mm[Hg] Le nkLog blood pressure, systolic 110 mm[Hg] Ina og pulse rate 68 /min Aishwarya Kuhn blood pressure, cuff size regular Kurt palm Kuhn blood pressure, diastolic 78 mm[Hg] Ta jiaha Kuhn blood pressure, systolic 110 mm[Hg] Tab pinkya Buras oxygen saturation, oximetry 99 % Aishwarya Kuhn respiratory rate E&M 12 /min Aishwarya Kuhn weight E&M 173 [lb_av] Aishwarya Kuhn height E&M 60 [in_i] Aishwarya Kuhn blood pressure, diastolic 60 mm[Hg] Li nkLogic blood pressure, systolic 110 mm[Hg] Ina kLogic pulse rate 80 /min Melvina Posley respiratory rate E&M 14 /min Melvina Posley oxygen saturation, oximetry 93 % Melvina Posley weight E&M 172 [lb_av] Melvina Posley blood pressure, cuff size regular Le slie Posley blood pressure, diastolic 60 mm[Hg] Le slie Posley blood pressure, systolic 110 mm[Hg] Les lie Posley height E&M 60 [in_i] Melvina Posley Body Mass Index (Ratio) 34.37 kg/m2 Jase as Beaumont blood pressure, cuff size regular Ke rri Gruenenfelder blood pressure, diastolic 80 mm[Hg] Ke rri Gruenenfelder blood pressure, systolic 124 mm[Hg] Ker ri Gruenenfelder oxygen saturation, oximetry 99 % Rosa Maria Gruenenfelder respiratory rate E&M 12 /min Rosa Maria G ruenenfelder pulse rate 63 /min Rosa Maria Gruenenfe lder weight E&M 176 [lb_av] Rosa Maria Gruenenfe lder height E&M 60 [in_i] Rosa Maria Gruenenfe lder Body Mass Index (Ratio) 32.81 kg/m2 Valdez Garcia blood pressure, diastolic 73 mm[Hg] Santa mathews Dennis blood pressure, systolic 112 mm[Hg] Bebo daly Dennis oxygen saturation, oximetry 97 % Ivory Dennis pulse rate 73 /min Ivory chapman blood pressure, cuff size large Santa mathews Dennis respiratory rate E&M 14 /min Viviana Dennis weight E&M 168 [lb_av] Ivory chapman height E&M 60 [in_i] Ivory Agustin d Body Mass Index (Ratio) 33.78 kg/m2 Jase as Beaumont blood pressure, cuff size regular Ke rri Gruenenfelder blood pressure, diastolic 80 mm[Hg] Ethan Uribevalley [facility] blood pressure, systolic 120 mm[Hg] Randy Uribejuliapillo oxygen saturation, oximetry 98 % Rosa Maria Lowry respiratory rate E&M 12 /min Rosa Maria lagunavalley [facility] pulse rate 78 /min Rosa Maria Biggs [facility] weight E&M 173 [lb_av] Rosa Maria Biggs er height E&M 60 [in_i] Rosa Maria Biggs [facility] Body Mass Index (Ratio) 33.59 kg/m2 Valdez Garcia blood pressure, diastolic 66 mm[Hg] Li nkLog blood pressure, systolic 122 mm[Hg] Ina kLog blood pressure, diastolic 66 mm[Hg] An cody Galeano blood pressure, systolic 122 mm[Hg] Any a Froylan pulse rate 78 /min Johanny Froylan oxygen saturation, oximetry 99 % Johanny Galeano weight E&M 172 [lb_av] Johannyиван Galeano blood pressure, cuff size large An cody Galeano height E&M 60 [in_i] Johanny Galeano Body Mass Index (Ratio) 33.78 kg/m2 Valdez Garcia blood pressure, diastolic 82 mm[Hg] Pablo austin Calabrese blood pressure, systolic 109 mm[Hg] She evelyn Calabrese pulse rate 77 /min Lucille Calabrese oxygen saturation, oximetry 98 % Lucille Calabrese respiratory rate E&M 20 /min Lucille Calabrese blood pressure, cuff size regular Pablo austin Calabrese weight E&M 173 [lb_av] Lucille Calabrese height E&M 60 [in_i] Lucille Calabrese Body Mass Index (Ratio) 33.20 kg/m2 Emigdio Delgadillo MD blood pressure, cuff size regular Ke rri Gruenenfelder blood pressure, diastolic 90 mm[Hg] Ke rri Gruenenfelder blood pressure, systolic 132 mm[Hg] Ker ri Gruenenfelder oxygen saturation, oximetry 98 % Rosa Maria Gruenenfelder respiratory rate E&M 12 /min Rosa Maria G ruenenfelder pulse rate 79 /min Rosa Maria Gruenenfe lder weight E&M 170 [lb_av] Rosa Maria Gruenenfe lder height E&M 60 [in_i] Rosa Maria Gruenenfe niccier Body Mass Index (Ratio) 32.26 kg/m2 Valdez Garcia blood pressure, diastolic 72 mm[Hg] St iona Nina blood pressure, systolic 113 mm[Hg] Lenora Nina oxygen saturation, oximetry 100 % Macey Nina pulse rate 75 /min Macey Nina respiratory rate E&M 18 /min Macey gomez weight E&M 165.2 [lb_av] Macey Nina height E&M 60 [in_i] Macey Nina Body Mass Index (Ratio) 31.83 kg/m2 Valedz Garcia blood pressure, cuff size regular Ke rri Gruenenfelder blood pressure, diastolic 70 mm[Hg] Ke rri Gruenenfelder blood pressure, systolic 120 mm[Hg] Ker ri Gruenenfelder oxygen saturation, oximetry 98 % Rosa Maria Gruenenfelder respiratory rate E&M 12 /min Rosa Maria G ruenenfelder pulse rate 80 /min Rosa Maria Gruenenfe [facility] weight E&M 163 [lb_av] Rosa Maria Kalyan [facility] height E&M 60 [in_i] Rosa Maria Kalyan [facility] Body Mass Index (Ratio) 32.14 kg/m2 Emigdio Delgadillo MD respiratory rate E&M 16 /min [facility] blood pressure, cuff size regular [facility] blood pressure, diastolic 80 mm[Hg] [facility] blood pressure, systolic 144 mm[Hg] [facility] oxygen saturation, oximetry 90 % [facility] pulse rate 82 /min [facility] weight E&M 164.6 [lb_av] [facility] height E&M 60 [in_i] [facility] Body Mass Index (Ratio) 32.03 kg/m2 Valdez Garcia blood pressure, diastolic 75 mm[Hg] An cody Galeano blood pressure, systolic 123 mm[Hg] Yelena Galeano pulse rate 76 /min Johanny Galeano oxygen saturation, oximetry 99 % Johanny Galeano weight E&M 164 [lb_av] Johanny Galeano blood pressure, cuff size large An cody Galeano height E&M 60 [in_i] Johanny Galeano Body Mass Index (Ratio) 32.22 kg/m2 Aditi Fortune MD blood pressure, cuff size large Ke rri Alen blood pressure, diastolic 72 mm[Hg] Ke rri Alen blood pressure, systolic 122 mm[Hg] Randy Lowry oxygen saturation, oximetry 100 % Rosa Maria Alen respiratory rate E&M 14 /min Rosa Maria Rhonda ruenenfelder pulse rate 82 /min Rosa Maria Uribee lder weight E&M 165 [lb_av] Rosa Maria Gruenenfe lder height E&M 60 [in_i] Rosa Maria Gruenenfe lder weight E&M 167 [lb_av] Kylee Chapin in Body Mass Index (Ratio) 32.61 kg/m2 Valdez Staleymaximus blood pressure, cuff size large Ke rri Gruenenfelder blood pressure, diastolic 80 mm[Hg] Ke rri Gruenenfelder blood pressure, systolic 130 mm[Hg] Randy ri Gruenenfelder oxygen saturation, oximetry 100 % Rosa Maria Grrosalbanenfelder respiratory rate E&M 14 /min Rosa Maria Ellis homerenenfelder pulse rate 78 /min Rosa Maria Grrosalbanenfe er weight E&M 167 [lb_av] Rosa Maria Uribee er height E&M 60 [in_i] Rosa Maria Rodrigueznfe er blood pressure, diastolic 80 mm[Hg] Me tang Jimenez blood pressure, systolic 130 mm[Hg] Monica nino Jimenez pulse rate 80 /min Patrizia Jimenez oxygen saturation, oximetry 98 % Patrizia Jimenez respiratory rate E&M 16 /min Patrizia Jimenez Body Mass Index (Ratio) 37.10 kg/m2 [facility]&M [facility] [lb_av] Patrizia Jimenez blood pressure, diastolic 77 mm[Hg] Me tang Jimenez blood pressure, systolic 116 mm[Hg] Monica nino Jimenez Body Mass Index (Ratio) 36.71 kg/m2 Mandy ssa pulse rate 76 /min Patrizia Jimenez oxygen saturation, oximetry 98 % Patrizia Jimenez respiratory rate E&M 15 /min Patrizia Jimenez weight E&M 188 [lb_av] Patrizia Jimenez blood pressure, diastolic 82 mm[Hg] Me beckwith Jimenez blood pressure, systolic 124 mm[Hg] Monica oneill Jimenez pulse rate 78 /min Patrizia Jimenez oxygen saturation, oximetry 99 % Patrizia Jimenez respiratory rate E&M 17 /min Patrizia Jimenez weight E&M 193 [lb_av] Patrizia Jimenez blood pressure, diastolic, left arm 69 mm [Hg] Darius Austin RN blood pressure, systolic, left arm 117 mm [Hg] Darius Austin RN blood pressure, diastolic, right arm 78 m m[Hg] Darius Austin RN blood pressure, systolic, right arm 117 m m[Hg] Darius Austin RN blood pressure, diastolic 69 mm[Hg] John Austin RN blood pressure, systolic 117 mm[Hg] Darius Austin RN pulse rate 77 /min Darius Austin RN oxygen saturation, oximetry 98 % Darius Austin RN respiratory rate E&M 16 /min Darius edwards RN Body Mass Index (Ratio) 37.04 kg/m2 Darius Austin RN weight E&M 189 [lb_av] Darius Austin RN Body Mass Index (Ratio) 37.24 kg/m2 Reeves i Alen blood pressure, diastolic 64 mm[Hg] Ke rri Alen blood pressure, systolic 102 mm[Hg] Randy ri Alen pulse rate 84 /min Rosa Maria Kalyan jara oxygen saturation, oximetry 98 % Rosa Maria Alen respiratory rate E&M 14 /min Rosa Maria Ellis madhav weight E&M 190 [lb_av] Rosa Maria Kalyan lder Body Mass Index (Ratio) 36.85 kg/m2 Leandro stroud Alen blood pressure, diastolic 88 mm[Hg] Ke rri Alen blood pressure, systolic 124 mm[Hg] Randy ayala Alen pulse rate 84 /min Rosa Maria Kalyan lder oxygen saturation, oximetry 96 % Rosa Maria Alen respiratory rate E&M 15 /min Rosa Maria Ellis madhav weight E&M 188 [lb_av] Rosa Maria Kalyan grajedaer blood pressure, diastolic 82 mm[Hg] John Austin RN blood pressure, systolic 123 mm[Hg] Darius Austin RN pulse rate 70 /min Darius Austin RN oxygen saturation, oximetry 99 % Darius Austin RN respiratory rate E&M 18 /min Darius edwards RN weight E&M 188 [lb_av] Darius Austin RN Body Mass Index (Ratio) 35.48 kg/m2 Leandro stroud Alen blood pressure, diastolic 95 mm[Hg] Ke lisai Alen blood pressure, systolic 133 mm[Hg] Randy ayala Alen pulse rate 79 /min Rosa Maria Kalyan grajedaer oxygen saturation, oximetry 98 % Rosa Maria Alen respiratory rate E&M 17 /min Rosa Maria Ellis madhav weight E&M 181 [lb_av] Rosa Maria Kalyan grajedaer height E&M 60 [in_i] Rosa Maria Kalyan jara ALLERGIES Allergy Name Onset Date Reaction Criticality Status VEE-TIDS High Criticality active AUGMENTIN High Criticality active BETALACTAMASEIN High Criticality act alejandro FORMOTEROL High Criticality active BUDESONIDE High Criticality active SULFA High Criticality active PCN High Criticality active LATEX High Criticality active CODEINE High Criticality active TRIMETHOPRIM High Criticality active SULFA High Criticality active POTASSIUM High Criticality active NAPROSYN High Criticality active ALONSO High Criticality active AMOXICILLIN High Criticality active HYDROCODONE High Criticality active RESULTS Date Observation Value Provider Reference Range Interpretation Location prothrombin time (patient) 10.6 s [facility] 9.1-12.0 international normalized ratio (INR) 1.0 [facility] 0.9-1.2 lipoprotein, beta, serum, point, quantitative, calculated 132 mg/dL [facility] 0-99 High HDL cholesterol, serum 56 mg/dL [facility] >39 triglyceride, serum, random 81 mg/dL [facility] 0-149 cholesterol, serum 203 mg/dL [facility] 100-199 High calcium, serum 9.6 mg/dL [facility] 8.7-10.2 carbon dioxide, venous blood 21 mmol/L [facility] 20-29 chloride, serum 105 mmol/L [facility] 96-106 potassium, serum 5.0 mmol/L [facility] 3.5-5.2 sodium, serum 140 mmol/L [facility] 108-869 9918/09 /26 urea nitrogen/creatinine ratio, serum 23 [facility] 9-23 creatinine, serum 1.10 mg/dL [facility] 0.57-1.00 High urea nitrogen, blood 25 mg/dL [facility] 6-24 High blood glucose, random 101 mg/dL [facility] 70-99 High basophil count, absolute 0.1 x10E3/uL [facility] 0.0-0.2 Eosinophil Absolute Count 0.2 X10E3/UL [facility] 0.0-0.4 monocyte count, blood, automated 0.4 X10E3/UL [facility] 0.1-0.9 lymphocyte count, blood, automated 1.4 X10E3/UL [facility] 0.7-3.1 Absolute Neutrophils 4.6 X10E3/UL [facility] 1.4-7.0 basophils as percent of blood leukocytes 1 % [facility] Not Estab. eosinophils as percent of blood leukocytes 2 % [facility] Not Estab. monocytes as percent of blood leukocytes 6 % [facility] Not Estab. lymphocytes as percent of blood leukocytes 21 % [facility] Not Estab. neutrophils as percent of blood leukocytes 70 % [facility] Not Estab. platelet count 225 X10E3/UL [facility] 042-939 4544/09 /25 red blood cell distribution width 12.2 % [facility] 11.7-15.4 mean corpuscular hemoglobin concentration, RBC 32.6 G/DL [facility] 31.5-35.7 mean corpuscular hemoglobin, RBC 30.8 pg [facility] 26.6-33.0 mean corpuscular volume, RBC 95 fL [facility] 79-97 hematocrit, blood 44.2 % [facility] 34.0-46.6 hemoglobin, blood 14.4 g/dL [facility] 11.1-15.9 erythrocyte (RBC) count 4.67 X10E6/UL [facility] 3.77-5.28 leukocyte count, blood 6.7 X10E3/UL [facility] 3.4-10.8 Absolute Basophils 0.1 K/CUMM [facility] 0.0-0.1 Normal C, [place] [address] Absolute Monocytes 0.5 K/CUMM [facility] 0.2-0.8 Normal , [place] [address] Absolute Lymphocytes 1.8 K/CUMM [facility] 0.8-3.3 Normal C, [place] [address] Absolute Neutrophils 5.3 K/CUMM [facility] 1.7-6.5 Normal C, [place] [address] nucleated red blood cells as percent of blood leukocytes 0.00 K/CUMM [facility] 0.00-0.01 Normal C, [place] [address] red blood cell distribution width, size density 43.2 fL [facility] 35.7-48.1 Normal C, [place] [address] mean corpuscular hemoglobin concentration, RBC 33.8 G/DL [facility] 32.3-35.7 Normal , [place] [address] mean corpuscular hemoglobin, RBC 31.4 pg [facility] 27.1-33.3 Normal , [place] [address] mean corpuscular volume, RBC 92.8 fL [facility] 81.3-96.4 Normal C, [place] [address] erythrocyte count, whole blood 4.30 M/CUMM [facility] 3.90-5.20 Normal , [place] [address] mean platelet volume 11.6 fL [facility] 9.1-12.3 Normal , [place] [address] platelet count 225 10*3/uL [facility] 150-400 Normal C, [place] [address] hematocrit, blood 39.9 % [facility] 35.6-45.5 Normal C, [place] [address] hemoglobin, blood 13.5 g/dL [facility] 11.9-15.5 Normal C, [place] [address] Estimated Glomerular Filtration Rate (calc) 70 mL/min/{ 1.73_m2} [facility] C, [place] [address] cholesterol, non-HDL, total 121 mg/dL [facility] C, [place] [address] lipoprotein, beta, serum, point, quantitative, calculated 100 mg/dL [facility] <=129 Normal C, [place] [address] HDL CHOLESTEROL 47 mg/dL [facility] >=40 Normal C, [place] [address] triglyceride, serum, fasting 103 mg/dL [facility] <=149 Normal C, [place] [address] cholesterol, serum 168 mg/dL [facility] 30-199 Normal C, [place] [address] aspartate aminotransferase (SGOT), serum 22 1/L [facility] 10-45 Normal C, [place] [address] alanine aminotransferase (SGPT), serum 26 1/L [facility] 7-45 Normal C, [place] [address] Alkaline phosphatase 64 [facility] 40-130 Normal C, [place] [address] albumin, serum 4.3 g/dL [facility] 3.5-5.0 Normal C, [place] [address] protein, total, serum 6.6 g/dL [facility] 6.5-8.5 Normal C, [place] [id number] bilirubin, serum, total 0.2 mg/dL [facility] 0.1-1.2 Normal C, [place] [address] calcium, serum 8.8 mg/dL [facility] 8.5-10.3 Normal C, [place] [address] blood glucose, random 90 mg/dL [facility] 70-199 Normal C, [place] [address] creatine, serum 0.99 mg/dL [facility] 0.60-1.10 Normal C, [place] [address] urea nitrogen, blood 19 mg/dL [facility] 6-25 Normal C, [place] [address] anion gap, serum 10 mmol/L [facility] 2-15 Normal C, [place] [address] carbon dioxide, venous blood 22 mmol/L [facility] 22-32 Normal C, [place] [address] chloride, serum 108 mmol/L [facility] 97-110 Normal C, [place] [address] potassium, serum 4.1 MMOL/L [facility] 3.3-4.9 Normal C, [place] [address] sodium, serum 140 mmol/L [facility] 135-145 Normal C, [place] [address] thyroid stimulating hormone, serum 3.97 MCIUNIT/ ML [facility] 0.30-4.20 Normal C, [place] [address] international normalized ratio (INR) 1.0 Stanley Shook platelet count 261 10*3/mm3 Stanley Shook hematocrit, blood 45.1 % Stanley Shook alanine aminotransferase (SGPT), serum 30 1/L Stanley Shook aspartate aminotransferase (SGOT), serum 22 1/L [facility] creatinine, serum 0.77 mg/[facility] potassium, serum 4.2 mmol/L [facility] sodium, serum 145 mmol/L [facility] platelet count 271 10*3/mm3 [facility] hematocrit, blood 40.7 % [facility] thyroid stimulating hormone, serum 2.960 u[IU]/mL [facility] creatinine, serum 1.00 mg/dL [facility] potassium, serum 3.7 mmol/L [facility] sodium, serum 142 mmol/L [facility] HISTORY OF MEDICATION USE Medication Status Instructions Dates Provider Indications Com ments Cardizesandy CD 120 mg capsule,extended release 24hr active TAKE 1 CAPSULE BY MOUTH EVERY DAY Nidia Ventimiglia 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 nitroglycerin 0.4 mg tablet, sublingual active 1 tablet under tongue as directed 1 tablet under tongue for chest pain. May repeat every 5 minutes if still having chest pain- to max of 3 tablets per episode.If no relief after 3rd dose, go to ER 11/15 Connor Neves MD isosorbide mononitrate 30 mg tablet extended release 24 hr active Take 1 tablet by mouth once daily 11/15 Connor Neves MD ranolazine 500 mg tablet extended release 12 hr active Take 1 tablet by mouth once a day Shannon Funez NP fluticasone propion-salmeterol 250-50 mcg/dose blister with device active twice a day Shannon Funez NP fluticasone propionate 50 mcg/actuation spray,suspension active USE 1 PUFF INTO BOTH NOSTRILS TWICE A DAY Kin Rangel hydrochlorothiazide 12.5 mg tablet completed Take 1 tablet by mouth once a day 10/12 - 11/15 Melvina Solorzano Hypertension lisinopril 10 mg tablet completed - 11/15 Melvina Solorzano Wixela Inhub 250-50 mcg/dose blister with device completed - 11/15 Melvina Solorzano diltiazem HCl 30 mg tablet completed TAKE 1 TABLET BY MOUTH THREE TIMES A DAY 11/27 - Nidia Aldridge PRADIP Benadryl Allergy 25 mg tablet completed Take 2 tablet by mouth every eight hours as needed do not drive or use any machinery 12 hours after taking this medication 07/28 - 12/30 Shannon Funez NP clindamycin HCl 150 mg capsule completed Take 1 capsule by mouth three times a day 07/23 - 12/30 Shannon Funez NP tramadol 50 mg tablet completed 1 tablet every six hours as needed for pain 07/23 - 12/30 Shannon Funez NP propranolol 10 mg tablet completed Take 1 tablet by mouth three times a day 06/26 - 11/27 Valdez Ahrashelzai magnesium oxide 400 mg magnesium tablet active Take 1 tablet by mouth twice a day 06/26 Kin Rangel albuterol sulfate 90 mcg/actuation HFA aerosol inhaler active as needed Shannon Funez NP QVAR 80 MCG/ACT INHALATION AEROSOL SOLUTION completed Take 1 puff twice a day 01/06 - 06/26 Valdez Andrewsmedzai DOXYCYCLINE HYCLATE CAPSULE completed 100mg by mouth twice daily 12/21 - 05/12 Rosa Maria Lowry LO LOESTRIN FE TABLET completed as directed 10/28 - 05/12 Rosa Maria Lowry PRILOSEC CPDR completed 20 mg twice a day 10/28 - 06/26 Valdez Ahmedzai FLONASE SUSPENSION completed as directed 10/28 - 06/26 Valdez Ahmedzai PROAIR HFA AEROSOL SOLUTION completed 2 puff three times a day 10/28 - 06/26 Valdez Ahmedzai DULERA AEROSOL completed two puffs twice a day 10/28 - 05/12 Rosa Maria Lowry SOCIAL HISTORY Date Observation Value Provider personal history of marijuana use no Valdez Staleyi drug use no Valdez Hartzai alcohol use no Valdez Andrewsmedzai passive cigarette sm shoshana exposure no Valdez Andrewsmedzai smoking status Never smoker Valdez Hartzai personal history of marijuana use no Nidia Ventimiglia 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 Nidia Ventimig suresh 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 no Nidia Ventimig suresh 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 cigarette sm shoshana exposure no Nidia Ventimiglia 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 smoking status Never smoker Nidia Ventim iglia 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ne Shannon Hayden r HYDROPULPER 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 alcohol use no Shannon Hayden r 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 sm shoshana exposure no Shannon Funez HYDROPULPER OPERATOR smoking status Never smoker Shannon Casas ler HYDROPULPER OPERATOR Exercise counseling Yes Shannon Funez HYDROPULPER OPERATOR number of grandchildren Connor Neves MD drug use none Connor Neves MD alcohol use no Connor Neves MD passive cigarette sm shoshana exposure no Connor Neves MD smoking status Never smoker Connor bernardo MD drug use none Valdez Garcia alcohol use no Valdez Garcia passive cigarette sm shoshana exposure no Valdez Garcia smoking status Never smoker Valdez Garcia drug use none Connor Neves MD alcohol use no Connor Neves MD passive cigarette sm shoshana exposure no Connor Neves MD smoking status Never smoker Connor bernardo MD drug use none Kin Rangel alcohol use no Kin Rangel passive cigarette sm shoshana exposure no Kin Rangel smoking status Never smoker Kin Rangel smoking status Never smoker Ivory Little phillip drug use none Ivory Nikole chapman alcohol use no Ivory Nikole chapman passive cigarette sm shoshana exposure no Ivory Dennis number of grandchildren Concha Iverson passive cigarette sm shoshana exposure no León Iverson smoking status Never smoker León Iverson social history reviewed E&M revi ewed - no changes required León Iverson social history E&M Marital Statu s: Single Smoking History: P ora has never smoked. Valdez Garcia social history reviewed E&M revi ewed - no changes required Valdez Garcia passive cigarette sm shoshana exposure no Johanny Froylan smoking status Never smoker Johannyиван Galeano social history E&M Marital Statu s: Single Smoking History: P ora has never smoked. Valdez Garcia social history reviewed E&M revi ewed - no changes required Valdez Garcia smoking status Never smoker Lucille Bharati social history reviewed E&M revi ewed - no changes required Jj Lowry social history E&M Marital Statu s: Single Smoking History: P ora has never smoked. Valdez Garcia social history reviewed E&M revi ewed - no changes required Valdez Garcia passive cigarette sm shoshana exposure no Macey Nina smoking status Never smoker Macey Nina social history reviewed E&M revi ewed - no changes required Valdez Garcia smoking status Never smoker Anny Gu social history E&M Marital Statu s: Single Smoking History: Page payan has never smoked. Valdez Garcia social history reviewed E&M revi ewed - no changes required Valdez Garcia passive cigarette sm shoshana exposure no Johanny Galeano smoking status Never smoker Johanny Galeano social history E&M Marital Statu s: Single Smoking History: Page payan has never smoked. Manas Fortune MD social history reviewed E&M revi ewed - no changes required Manas Fortune MD passive cigarette sm shoshana exposure no Rosa Maria Alen smoking status Never smoker Rosa Maria Kilo turpin passive cigarette sm shoshana exposure no Rosa Maria Alen smoking status Never smoker Rosa Maria Kilo turpin social history E&M Marital Statu s: Single Smoking History: Page payan has never smoked. Concha Delgadillo MD social history reviewed E&M revi ewed - no changes required Concha Delgadillo MD alcohol use no Patrizia Jimenez drug use none Patrizia Jimenez passive cigarette sm shoshana exposure no Patrizia Jimenez smoking status Never smoker Patrizia melvin social history reviewed E&M revi ewed - no changes required Concha Delgadillo MD drug use none Patrizia Jimenez passive cigarette sm shoshana exposure no Patrizia Jimenez smoking status Never smoker Patrizia Lemusgary melvin social history reviewed E&M reviewed Darius Austin RN social history reviewed E&M reviewed Darius Austin RN drug use none Concha riggins MD smoking/tobacco cess ation, patient education and counseling yes Concha Delgadillo MD social history reviewed E&M reviewed Concha Delgadillo MD social history reviewed E&M reviewed Darius Austin RN social history E&M Marital Status: Single Darius Austin RN drug use no Rosa Maria Biggs lder passive cigarette sm shoshana exposure no Rosa Maria Olsenrosalbaestebanchucky smoking status never smoker Rosa Maria turpin social history reviewed E&M reviewed Rosa Maria Lowry MENTAL STATUS Date Observation Value Provider assessment of judgme nt and insight E&M Alert and oriented to time, place and person. Mood and affect are normal. Darius Austin RN assessment of judgme nt and insight E&M Alert and oriented to time, place and person. Mood and affect are normal. Darius Austin RN assessment of judgme nt and insight E&M Alert and oriented to time, place and person. Mood and affect are normal. Darius Austin RN assessment of judgme nt and insight E&M Alert and oriented to time, place and person. Mood and affect are normal. Concha Delgadillo MD assessment of judgme nt and insight E&M Alert and oriented to time, place and person. Mood and affect are normal. Darius Austin RN assessment of judgme nt and insight E&M Alert and oriented to time, place and person. Mood and affect are normal. Darius Austin RN FAMILY HISTORY Family Member Condition Father Family History of Hy pertension: INSURANCE PROVIDERS Payer name Policy type / Coverage type [employer] party ID [facility] [employer] [id number] ADVANCE DIRECTIVES Name Date DISCUSSED - NO DECISION MADE TREATMENT PLAN Date Name Performer [id number],C, c heck PFTs and CXR u se inhaler TID León Iverson [id number],S, n o events on ILR León Iverson [id number],S, Her updated medication list for this problem includes: Diltiazem Hcl 30 Mg Tablet (Diltiazem hcl) ..... Take 1 tablet by mouth three times a day Lisinopril 5 Mg Tablet (Lisinopril) León Iverson [id number],S, S he was recently admitted to [facility] for chest pain and underwent cardiac cath which showed no significant CAD, mild plaque, normal EF. León Iverson [id number],S, B P today: 120/80 P rior BP: 122/66 (12/25/2022) Her updated medication list for this problem includes: Diltiazem Hcl 30 Mg Tablet (Diltiazem hcl) ..... Take 1 tablet by mouth three times a day Lisinopril 5 Mg Tablet (Lisinopril) León Iverson [id number],S, Valdez Staley i [id number],C, n o events as of late Valdez Haileyza [id number],C,at baseline R chadmellissa Luísmaximus [id number],C, S he was recently admitted to [facility] for chest pain and underwent cardiac cath which showed no significant CAD, mild plaque, normal EF. Valdez Hartzamaximus [id number],C, B P today: 122/66 P rior BP: 109/82 (11/27/2022) Labs Reviewed: C reat: 0.77 (11/18/2012) Valdez Haileyzai [id number],C,N o events seen on ILR that can be attributable to her sxs, will continue to monitor her sxs Valdez Hartzai [id number],C, B P today: 109/82 P rior BP: 132/90 (11/11/2022) Labs Reviewed: C reat: 0.77 (11/18/2012) Valdez medzai [id number],C,W ill stop her Propranolol and start her on Diltiazem 30 mg TID, will consider Imdur ER at next visit if her sxs do not improve Valdez Haileyzai [id number],C,no events as of late Valdez Garcia [id number],C,P resent on exertion and at random at rest, Valdez Garcia [id number],C,S he was recently admitted to [facility] for chest pain and underwent cardiac cath which showed no significant CAD, mild plaque, normal EF. U nclear etiology of her chest pain as her cath showed no culprit for her sxs. w ill consider Imdur ER at next visit if her sxs do not improve Valdez Garcia [id number],S, Valdez Staley i [id number],C, W ill check thyroid. Concha Delgadillo MD [id number],W,R ecently, she went up a flight of stairs where she felt severe dizziness accompanied with shortness of breath, palpitations, and chest pain. She then had an episode of syncope. She still has chest soreness in the office today. H er updated medication list for this problem includes: Propranolol 10 Mg Tablet (Propranolol) ..... Take 1 tablet by mouth three times a day Lisinopril 5 Mg Tablet (Lisinopril) Jj Burchpillo [id number],W, Recently, she went up a flight of stairs where she felt severe dizziness accompanied with shortness of breath, palpitations, and chest pain. She then had an episode of syncope. She still has chest soreness in the office today. H er updated medication list for this problem includes: Propranolol 10 Mg Tablet (Propranolol) ..... Take 1 tablet by mouth three times a day Lisinopril 5 Mg Tablet (Lisinopril) Jj Burchpillo [id number],C, R ecently had syncope episode following high HR and dizziness. Need to check ILR. Jj Olsenjatin [id number],C, H er updated medication list for this problem includes: Propranolol 10 Mg Tablet (Propranolol) ..... Take 1 tablet by mouth three times a day Lisinopril 5 Mg Tablet (Lisinopril) Jj Uribechucky [id number],C,no sxs curren tlgilberto [facility] [id number],C, N o chest pain [facility] [id number],C,i ncision site is healing well, normal function [facility] [id number],C,d enies any episodes or sxs currently [facility] [id number],C,w ill remove sutures today in office [facility] [id number],C, H er updated medication list for this problem includes: Propranolol 10 Mg Tablet (Propranolol) ..... Take 1 tablet by mouth twice a day Lisinopril 5 Mg Tablet (Lisinopril) Orders: G lobal No Charge (CPT-49583) Concha Delgadillo MD [id number],C, H er updated medication list for this problem includes: Propranolol 10 Mg Tablet (Propranolol) ..... Take 1 tablet by mouth twice a day Lisinopril 5 Mg Tablet (Lisinopril) Concha Delgadillo MD [id number],C, O ld Explanted Hardware Device Type: Reveal Teletypist: [employer] Model: 9529 Serial Number: [id number] I mplant Date: 2012-12-30 explanted 07/23/2022 news/p ILR 07/23/2022 [employer] O rders: G lobal No Charge (CPT-68214) Her updated medication list for this problem includes: Propranolol 10 Mg Tablet (Propranolol) ..... Take 1 tablet by mouth twice a day Lisinopril 5 Mg Tablet (Lisinopril) Concha Delgadillo MD [id number],C,s een on holter, HR was 137 max. She has ILR implant but battery is depleted. I recommend explanting current device and implanting new device for better monitoring of her episodes of arrythmias in order to optimally treat her. Advised her to consider option and let us know. Will start her on Magnesium 400 mg BID. Will also start her on Propanolol 10 mg BID to control her SVT and rapid HR. Valdez Garcia [id number],C,S he is experiencing runs of paroxysmal SVT, max HR was 137 bpm. Valdez Garcia [id number],C,Associated to her palpitations. Valdez Garcia [id number],C,No chest pain Valdez Garcia [id number],C,E cho was normal and so far the monitor has not shown of any episodes of SVT but a few PVCs. Manas Fortune MD [id number],C,I t appears to occur when her palpitations start, but her routine stress test was normal. She went to [facility] and was seen and had multiple tests done and they could not find any reason to admit her. Our testing also seemed ok and will see if anything shows up on the rest of the telemonitor. Manas Fortune MD [id number],S,S ee prior assessments. Device at [facility], will schedule for removal after test results and f/u visit. Lucille Chavira NP [id number],S,Will check tr eadmill stress test Lucille Chavira NP [id number],S,P atient has implanted loop recorder which is [facility]. She has had persistent palpitations and chest pain. Will place 30 day event monitor, check treadmill stress test and echocardiogram. Will see in follow up and then schedule for device removal at that time. Lucille Chavira NP Telehealth: H er updated medication list for this problem includes: Cardizem Cd 120 Mg Capsule,extended Release 24hr (Diltiazem hcl) ..... Take 1 capsule by mouth every day Prior BP: 127/77 (05/19/2024) Labs Reviewed: C reat: 1.10 (01/06/2024) C hol: 203 (01/06/2024) HDL: 56 (01/06/2024) LDL: 132 (01/06/2024) T (01/06/2024) Kin Rangel Telehealth:no arrhyt hyacinthtori Rangel Electrophysiology:per specialist / PCP Valdez Garcia Electrophysiology:Th is visit has been a part of the consistent, comprehensive, and ongoing management of the chronic medical condition(s) listed above for the patient. BP is satisfactory today. BP today: 127/77 P rior BP: 111/75 (01/26/2024) Labs Reviewed: C reat: 1.10 (01/06/2024) C hol: 203 (01/06/2024) HDL: 56 (01/06/2024) LDL: 132 (01/06/2024) T (01/06/2024) Her updated medication list for this problem includes: Cardizem Cd 120 Mg Capsule,extended Release 24hr (Diltiazem hcl) ..... Take 1 capsule by mouth every day Valdez Garcia Electrophysiology:ca th 11/2022 n o significant CAD, mild plaque Upper ext. angio 01/2024 showed 1 . Widely patent aorta 2 . Widely patent bilateral upper extremity vasculature 3 . Bilateral slow flow noted beyond the brachial artery 4 . Consideration towards management of endothelial dysfunction with possible Raynaud?s workup Her updated medication list for this problem includes: Cardizem Cd 120 Mg Capsule,extended Release 24hr (Diltiazem hcl) ..... Take 1 capsule by mouth every day Ranolazine 500 Mg Tablet Extended Release 12 Hr (Ranolazine) ..... Take 1 tablet by mouth once a day Nitroglycerin 0.4 Mg Tablet, Sublingual (Nitroglycerin) ..... 1 tablet under tongue as directed 1 tablet under tongue for chest pain. may repeat every 5 minutes if still having chest pain- to max of 3 tablets per episode.if no relief after 3rd dose, go to er Isosorbide Mononitrate 30 Mg Tablet Extended Release 24 Hr (Isosorbide mononitrate) ..... Take 1 tablet by mouth once daily [facility] Electrophysiology:at baseline ECHO today will review results stress test: 06/2022 no ischemia 06/2022: Echo: EF 65%, impaired LV relaxation, mild TR. H er updated medication list for this problem includes: Cardizem Cd 120 Mg Capsule,extended Release 24hr (Diltiazem hcl) ..... Take 1 capsule by mouth every day [facility] Electrophysiology: n o significant evens on ILR, sxs are stable currently and improved compared to the past Her updated medication list for this problem includes: Cardizem Cd 120 Mg Capsule,extended Release 24hr (Diltiazem hcl) ..... Take 1 capsule by mouth every day Ranolazine 500 Mg Tablet Extended Release 12 Hr (Ranolazine) ..... Take 1 tablet by mouth once a day Nitroglycerin 0.4 Mg Tablet, Sublingual (Nitroglycerin) ..... 1 tablet under tongue as directed 1 tablet under tongue for chest pain. may repeat every 5 minutes if still having chest pain- to max of 3 tablets per episode.if no relief after 3rd dose, go to er Isosorbide Mononitrate 30 Mg Tablet Extended Release 24 Hr (Isosorbide mononitrate) ..... Take 1 tablet by mouth once daily [facility] Electrophys[facility]:no events seen in ILR [facility] Cardiology:controlle d 1 H er updated medication list for this problem includes: Diltiazem Hcl 30 Mg Tablet (Diltiazem hcl) ..... 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 will arrange angio to r/o thoracic outlet syndrome. will arrange with Dr. Suma delgadillo t would prefer to have done at [facility] d/t insurance. manual BP L 120/60 R 118/70. arterial duplex: 12/31/23 C ONCLUSIONS: 1 . Normal arterial flow of the upper extremities with arms at side and with arms above head. 2 . >20mmHg drop in wrist pressures with arms above head suggestive of possible thoracic outlet syndrome. 3 . Arterial angiography is recommeded for clinical correlation of symptoms and identification of anatomic abnormalities. Shannon Funez NP Cardiology:no recurr ence ECHO today will review results stress test: 06/2022 no ischemia 06/2022: Echo: EF 65%, impaired LV relaxation, mild TR. Shannon Funez NP Cardiology:loop yuri rder: remote check 12/25/23 no new events, battery good. Shannon Funez NP Cardiology:EKG today SR n o palpitations loop recorder: remote check 12/25/23 no new events, battery good. Shannon Funez NP Cardiology: B P today: 112/78 P rior BP: 112/78 (12/15/2023) Labs Reviewed: C reat: 0.77 (11/18/2012) C hol: 168 (02/02/2023) LDL: 100 (02/02/2023) T (02/02/2023) Her updated medication list for this problem includes: Diltiazem Hcl 30 Mg Tablet (Diltiazem hcl) ..... Take 1 tablet by mouth three times a day Shannon Funez NP Cardiology:no recurr ence 06/2022 stress test no ischemia Shannon Funez NP Cardiology:no recurr rendawit s tredenisse test: 06/2022 no ischemia 06/2022: Echo: EF 65%, impaired LV relaxation, mild TR. repeat echo today 12/31/23 Shannon Olivomo HYDROPULPER OPERATOR Cardiology:effort related Batsheva Neves MD Cardiology Connor Chapman Cardiology:Continue current medications S tates that her exertional Sx have continued Connor Neves MD Electrophysiology: H er updated medication list for this problem includes: Nitroglycerin 0.4 Mg Tablet, Sublingual (Nitroglycerin) ..... 1 tablet under tongue as directed 1 tablet under tongue for chest pain. may repeat every 5 minutes if still having chest pain- to max of 3 tablets per episode.if no relief after 3rd dose, go to er Isosorbide Mononitrate 30 Mg Tablet Extended Release 24 Hr (Isosorbide mononitrate) ..... Take 1 tablet by mouth once daily Ranolazine 500 Mg Tablet Extended Release 12 Hr (Ranolazine) Diltiazem Hcl 30 Mg Tablet (Diltiazem hcl) ..... Take 1 tablet by mouth three times a day Valdezmellissa Staley Electrophysiology:no significant evens on ILR [facility]:cath no sig, C AD 11/2022 [facility]: B P today: 110/78 P rior BP: 110/60 (11/16/2023) Labs Reviewed: C reat: 0.77 (11/18/2012) C hol: 168 (02/02/2023) LDL: 100 (02/02/2023) T (02/02/2023) H er updated medication list for this problem includes: Diltiazem Hcl 30 Mg Tablet (Diltiazem hcl) ..... Take 1 tablet by mouth three times a day [facility] Radha Electrophysiology: P ersistent symptoms. Minimal improvement with ranexa. No events on ILR. Exacerbated by lifting boxes at work, especially pushing boxes above her head. I would recommend ELLE of the upper extremities to see if she has any evidence of subclavian stenosis or subclavian syndrome. Will give her sublingual nitro to see if this helps with her symptroms when they occur. Valdez Garcia Cardiology: P ersistent symptoms. Minimal improvement with ranexa. No events on ILR. Exacerbated by lifting boxes at work, especially pushing boxes above her head. I would recommend ELLE of the upper extremities to see if she has any evidence of subclavian stenosis or subclavian syndrome. Will give her sublingual nitro to see if this helps with her symptroms when they occur. Connor Neves MD Cardiology: E xertional SOB when going up stairs. Connor Neves MD Cardiology: N o events on ILR to account for symptoms. Connor Neves MD Cardiology: B lood pressure is satisfactory. Off lisinopril and HCTZ. Connor Neves MD Electrophysiology: H er updated medication list for this problem includes: Lisinopril 10 Mg Tablet (Lisinopril) Diltiazem Hcl 30 Mg Tablet (Diltiazem hcl) ..... Take 1 tablet by mouth three times a day Orders: 6 minute walk test (CPT-67252) R enal Artery Duplex (CPT-18142) 9 9215 HIGH 40-54min (CPT-21176) C omplex e/m visit add on (G2211) Kin Rangel Electrophysiology:needs device i nterrogation Kin Rangel Electrophysiology:no recurrence Kin Rangel Electrophysiology:ch chadd 6 minute walk H er updated medication list for this problem includes: Hydrochlorothiazide 12.5 Mg Tablet (Hydrochlorothiazide) ..... Take 1 tablet by mouth once a day Lisinopril 10 Mg Tablet (Lisinopril) Diltiazem Hcl 30 Mg Tablet (Diltiazem hcl) ..... Take 1 tablet by mouth three times a day Kin Rangel Electrophysiology Kin Rangel Electrophysiology:Ad d hctz R /o primary htn with renal artery doppler H er updated medication list for this problem includes: Hydrochlorothiazide 12.5 Mg Tablet (Hydrochlorothiazide) ..... Take 1 tablet by mouth once a day Lisinopril 10 Mg Tablet (Lisinopril) Diltiazem Hcl 30 Mg Tablet (Diltiazem hcl) ..... Take 1 tablet by mouth three times a day BP today: 124/80 Prior BP: 112/73 (05/21/2023) Labs Reviewed: C reat: 0.77 (11/18/2012) C hol: 168 (02/02/2023) LDL: 100 (02/02/2023) T (02/02/2023) Kin Rangel Electrophysiology:Ne eds device interrogation H er updated medication list for this problem includes: Lisinopril 10 Mg Tablet (Lisinopril) Diltiazem Hcl 30 Mg Tablet (Diltiazem hcl) ..... Take 1 tablet by mouth three times a day Kin Rangel Electrophysiology:de nies h er [facility] cardiac cath showed no significant CAD, mild plaque, normal EF. Kin Rangel Electrophysiology Valdez Garcia Electrophysiology:no significant arrythmias seen on ILR check Valdez dina Electrophysiology:no recent epis odes seen on ILR Valdez larissa Electrophysiology: B P today: 112/73 P rior BP: 120/80 (02/10/2023) Labs Reviewed: C reat: 0.77 (11/18/2012) C hol: 168 (02/02/2023) LDL: 100 (02/02/2023) T (02/02/2023) H er updated medication list for this problem includes: Diltiazem Hcl 30 Mg Tablet (Diltiazem hcl) ..... Take 1 tablet by mouth three times a day Lisinopril 5 Mg Tablet (Lisinopril) Valdez Garcia Electrophysiology Valdezmellissa Garcia Electrophysiology:no recurrence Valdez Garcia Electrophysiology: c heck PFTs and CXR u se inhaler TID León Kishor Electrophysiology: n o events on ILR León Kishor Electrophysiology: Her updated medication list for this problem includes: Diltiazem Hcl 30 Mg Tablet (Diltiazem hcl) ..... Take 1 tablet by mouth three times a day Lisinopril 5 Mg Tablet (Lisinopril) León Iverson Electrophysiology: S he was recently admitted to [facility] for chest pain and underwent cardiac cath which showed no significant CAD, mild plaque, normal EF. León Iverson Electrophysiology: B P today: 120/80 P rior BP: 122/66 (12/25/2022) Her updated medication list for this problem includes: Diltiazem Hcl 30 Mg Tablet (Diltiazem hcl) ..... Take 1 tablet by mouth three times a day Lisinopril 5 Mg Tablet (Lisinopril) León Iverson Electrophysiology Valdez Haileylilliam Electrophysiology: n o events as of late Valdez Ahrashellilliam [facility]rophysiology:[facility]: S he was recently admitted to [facility] for chest pain and underwent cardiac cath which showed no significant CAD, mild plaque, normal EF. Valdez Andrewsrashellilliam Electrophysiology: B P today: 122/66 P rior BP: 109/82 (11/27/2022) Labs Reviewed: C reat: 0.77 (11/18/2012) Valdez Hartzai Electrophysiology:No events seen on ILR that can be attributable to her sxs, will continue to monitor her sxs Valdez Hartzamaximus Electrophysiology: B P today: 109/82 P rior BP: 132/90 (11/11/2022) Labs Reviewed: C reat: 0.77 (11/18/2012) Valdez Andrewsmedzai Electrophysiology:Wi ll stop her Propranolol and start her on Diltiazem 30 mg TID, will consider Imdur ER at next visit if her sxs do not improve Valdez Garcia Electrophysiology:no events as o f late Valdez Garcia Electrophysiology:Pr esent on exertion and at random at rest, Valdezmellissa Garcia Electrophysiology:Sh patience was recently admitted to [facility] for chest pain and underwent cardiac cath which showed no significant CAD, mild plaque, normal EF. U nclear etiology of her chest pain as her cath showed no culprit for her sxs. w ill consider Imdur ER at next visit if her sxs do not improve Valdezmellissa Garcia Electrophysiology Valdezmellissa Garcia Cardiology: W ill check thyroid. Concha Delgadillo MD Cardiology:Recently, she went up a flight of stairs where she felt severe dizziness accompanied with shortness of breath, palpitations, and chest pain. She then had an episode of syncope. She still has chest soreness in the office today. H er updated medication list for this problem includes: Propranolol 10 Mg Tablet (Propranolol) ..... Take 1 tablet by mouth three times a day Lisinopril 5 Mg Tablet (Lisinopril) Concha Delgadillo MD Cardiology: Recently, she went up a flight of stairs where she felt severe dizziness accompanied with shortness of breath, palpitations, and chest pain. She then had an episode of syncope. She still has chest soreness in the office today. H er updated medication list for this problem includes: Propranolol 10 Mg Tablet (Propranolol) ..... Take 1 tablet by mouth three times a day Lisinopril 5 Mg Tablet (Lisinopril) Concha Delgadillo MD Cardiology: R ecently had syncope episode following high HR and dizziness. Need to check ILR. Concha Delgadillo MD Cardiology: H er updated medication list for this problem includes: Propranolol 10 Mg Tablet (Propranolol) ..... Take 1 tablet by mouth three times a day Lisinopril 5 Mg Tablet (Lisinopril) Concha Delgadillo MD Cardiology:no sxs currently Valdez Garcia Cardiology: N o chest pain [facility]:incision site is healing well, normal function Valdez dina Cardiology:denies any episodes o r sxs currently [facility] Electrophysiology:wi ll remove sutures today in office Valdezmellissa Garcia Cardiology: H er updated medication list for this problem includes: Propranolol 10 Mg Tablet (Propranolol) ..... Take 1 tablet by mouth twice a day Lisinopril 5 Mg Tablet (Lisinopril) Orders: G lobal No Charge (CPT-78762) Concha Delgadillo MD Cardiology: H er updated medication list for this problem includes: Propranolol 10 Mg Tablet (Propranolol) ..... Take 1 tablet by mouth twice a day Lisinopril 5 Mg Tablet (Lisinopril) Concha Delgadillo MD Cardiology: O ld Explanted Hardware Device Type: Reveal Teletypist: [employer] Model: [id number] Serial Number: [id number] I mplant Date: 2012-12-30 explanted 07/23/2022 news/p ILR 07/23/2022 [employer] O rders: G lobal No Charge (CPT-27056) Her updated medication list for this problem includes: Propranolol 10 Mg Tablet (Propranolol) ..... Take 1 tablet by mouth twice a day Lisinopril 5 Mg Tablet (Lisinopril) Concha Delgadillo MD Electrophysiology:se en on holter, HR was 137 max. She has ILR implant but battery is depleted. I recommend explanting current device and implanting new device for better monitoring of her episodes of arrythmias in order to optimally treat her. Advised her to consider option and let us know. Will start her on Magnesium 400 mg BID. Will also start her on Propanolol 10 mg BID to control her SVT and rapid HR. Valdezmellissa Garcia Electrophysiology:Pablo morin is experiencing runs of paroxysmal SVT, max HR was 137 bpm. Valdez Garcia Electrophysiology:Associated to her palpitations. Valdezmellissa Garcia Electrophysiology:No chest pain Valdez Garcia Cardiology:Echo was normal and so far the monitor has not shown of any episodes of SVT but a few PVCs. Manas Fortune MD Cardiology:It appear s to occur when her palpitations start, but her routine stress test was normal. She went to [facility] and was seen and had multiple tests done and they could not find any reason to admit her. Our testing also seemed ok and will see if anything shows up on the rest of the telemonitor. Manas Fortune MD Electrophysiology:Se e prior assessments. Device at [facility], will schedule for removal after test results and f/u visit. Lucille Chavira NP Electrophysiology:Will check shon admill stress test Lucille Chavira NP Electrophysiology:Jose melo has implanted loop recorder which is TONJA. She has had persistent palpitations and chest pain. Will place 30 day event monitor, check treadmill stress test and echocardiogram. Will see in follow up and then schedule for device removal at that time. Lucille Chavira NP Date Name TSH, free T4, total T3 CBC (INCLUDES DIFF/P LT) LIPID PANEL COMPREHENSIVE METABO LIC PANEL, W/EGFR EKG Arterial Duplex to r /o pseudoanuerysm PROTHROMBIN TIME WIT H INR LIPID PANEL CBC (INCLUDES DIFF/P LT) BASIC METABOLIC PANE L W/EGFR Arterial Duplex Uppe r Extremity Bilateral Renal Artery Duplex 6 minute walk test CXR- PA/Lat DLCO - 86504 FRC - 43191 FVC - 97984 Arterial Duplex to r /o pseudoanuerysm Arterial Duplex to r /o pseudoanuerysm LIPID PANEL CBC (INCLUDES DIFF/P LT) TSH, free T4, total T3 COMPREHENSIVE METABO LIC PANEL, W/EGFR Device Removal - [facility] V Loop Rec Implant - S [facility] Complete Echo Complete Echo TSH, 3RD GENERATION W/REFLEX TO FT4 CBC (INCLUDES DIFF/P LT) COMPREHENSIVE METABO LIC PANEL W/EGFR STR - Echo Loop Rec Analysis Loop Rec Implant - G C Loop Rec Analysis Mobile Cardiac Tele STR - Routine Complete Echo Holter Monitor 24 Hr Vijay SCHMIDT Time: 11-2 0min/7days Global No Charge HISTORY OF PROCEDURES Procedure Date Procedure Name Provider Procedure Notes S tatus Complex e/m visit ad d on Concha Delgadillo MD completed Complex e/m visit ad d on Concha Delgadillo MD completed EKG Concha marsh MD completed EKG Concha marsh MD completed EKG Concha marsh MD completed Complex e/m visit ad d on Connor Neves MD completed EKG Connor Neves MD complet ed Complex e/m visit ad d on Concha Delgadillo MD completed Spirometry Concha marsh MD completed FVC / MVV with bronchodilator - 24825 Concha Delgadillo MD completed SpO2 w/o 6min walk/titration Concha Delgadillo MD completed SVC - 88010 Concha marsh MD completed DLCO - 18092 Concha marsh MD completed EKG Concha marsh MD completed EKG Concha marsh MD completed EKG Concha marsh MD completed EKG Concha marsh MD completed EKG Concha marsh MD completed EKG Concha marsh MD completed Loop Recorder Interrogation, Remote Concha Delgadillo MD INTERROGATION EVALUATION REMOTE </30 D ILR SYS completed ICM Interrogation, Remote (Tech) Concha Delgadillo MD INTERROGATION EVAL REMOTE </30 D TECH REVIEW completed Loop Recorder Interrogation, Remote Concha Delgadillo MD INTERROGATION EVALUATION REMOTE </30 D ILR SYS completed ICM Interrogation, Remote (Tech) Concha Delgadillo MD INTERROGATION EVAL REMOTE </30 D TECH REVIEW completed Loop Recorder Interrogation, Remote Concha Delgadillo MD INTERROGATION EVALUATION REMOTE </30 D ILR SYS completed ICM Interrogation, Remote (Tech) Concha Delgadillo MD INTERROGATION EVAL REMOTE </30 D TECH REVIEW completed Loop Recorder Interrogation, Remote Concha Delgadillo MD INTERROGATION EVALUATION REMOTE </30 D ILR SYS completed ICM Interrogation, Remote (Tech) Concha Delgadillo MD INTERROGATION EVAL REMOTE </30 D TECH REVIEW completed Schedule Followup Concha paz MD in 1 year completed EKG Concha marsh MD completed SNOMED-CT: [id number] Current Medications Documented Concha Delgadillo MD completed EKG Concha marsh MD completed Loop Recorder Interrogation, Remote Concha Delgadillo MD INTERROGATION EVALUATION REMOTE </30 D ILR SYS completed ICM Interrogation, Remote (Tech) Concha Delgadillo MD INTERROGATION EVAL REMOTE </30 D TECH REVIEW completed Loop Recorder Interrogation, Remote Saulius Kalvaitis MD INTERROGATION EVALUATION REMOTE </30 D ILR SYS completed ICM Interrogation, Remote (Tech) Saulius Kalvaitis MD INTERROGATION EVAL REMOTE </30 D TECH REVIEW completed Loop Recorder Interrogation, Remote Saulius Kalvaitis MD INTERROGATION EVALUATION REMOTE </30 D ILR SYS completed ICM Interrogation, Remote (Tech) Saulius Kalvaitis MD INTERROGATION EVAL REMOTE </30 D TECH REVIEW completed Loop Recorder Interrogation, Remote Saulius Kalvaitis MD INTERROGATION EVALUATION REMOTE </30 D ILR SYS completed ICM Interrogation, Remote (Tech) Saulius Kalvaitis MD INTERROGATION EVAL REMOTE </30 D TECH REVIEW completed Loop Recorder Interrogation, Remote Saulius Kalvaitis MD INTERROGATION EVALUATION REMOTE </30 D ILR SYS completed ICM Interrogation, Remote (Tech) Saulius Kalvaitis MD INTERROGATION EVAL REMOTE </30 D TECH REVIEW completed Loop Recorder Interrogation, Remote Saulius Kalvaitis MD INTERROGATION EVALUATION REMOTE </30 D ILR SYS completed ICM Interrogation, Remote (Tech) Saulius Kalvaitis MD INTERROGATION EVAL REMOTE </30 D TECH REVIEW completed Loop Recorder Interrogation, Remote Saulius Kalvaitis MD INTERROGATION EVALUATION REMOTE </30 D ILR SYS completed ICM Interrogation, Remote (Tech) Saulius Kalvaitis MD INTERROGATION EVAL REMOTE </30 D TECH REVIEW completed Schedule Followup Saulius Michael paz MD in 1 year completed EKG Saulius Sanjiv marsh MD completed Loop Recorder Interrogation, Remote Saulius Kalvaitis MD INTERROGATION EVALUATION REMOTE </30 D ILR SYS completed ICM Interrogation, Remote (Tech) Saulius Kalvaitis MD INTERROGATION EVAL REMOTE </30 D TECH REVIEW completed Loop Recorder Interrogation, Remote Saulius Kalvaitis MD INTERROGATION EVALUATION REMOTE </30 D ILR SYS completed ICM Interrogation, Remote (Tech) Concha Delgadillo MD INTERROGATION EVAL REMOTE </30 D TECH REVIEW completed Loop Recorder Interrogation, Remote Concha Colbyitis INTERROGATION EVALUATION REMOTE </30 D ILR SYS completed ICM Interrogation, Remote (Tech) Concha Delgadillo MD INTERROGATION EVAL REMOTE </30 D TECH REVIEW completed Loop Recorder Interrogation, Remote Concha Colbyitis INTERROGATION EVALUATION REMOTE </30 D ILR SYS completed ICM Interrogation, Remote (Tech) Concha Delgadillo MD INTERROGATION EVAL REMOTE </30 D TECH REVIEW completed Schedule Followup Concha paz MD fu with SK in 6 months completed EKG Concha marsh MD completed Schedule Followup Concha paz MD fu with SK completed EKG Concha marsh MD completed EKG Concha marsh MD completed EKG Concha marsh MD completed Schedule Followup Concha paz MD fu several days after the 1 month event monitor is completed completed EKG Concha marsh MD completed
--- OUTSIDE RECORDS SUMMARY | 2024-09-01 01:09 | XMS_ITS | Clinical Summary ---
Author Organization [facility] Address [address] [place] [phone] Care Team Providers Care Green Building Materials Designer Name Role Phone Aj Gautam Primary Care Provider [phone] Allergies Active Allergy Reactions Criticality Noted Date [...] 02/14/2024 Assessment & Plan (02/14/2024 7:45 AM CLINICAL EDUCATION MANAGER): Due to length of illness we will [...] Snores 10/03/2015 09/17/2022 Disease of pericardium 01/20/2013 Dizziness and giddiness 12/11/2012 09/18/19 Encounters Date Type Department Care Team Description 07/14/2024 Telephone [facility] Diabetes and Endocrinology [address] [place] [phone] Jean Paul Amanda MD 06/29/2024 Results Follow-Up [facility] of [address] [phone] Jean Paul Amanda MD Thyroid Function [place] 06/28/2024 3:10 PM CDT Lab [address] [phone] Lorri thyroiditis 06/28/2024 2:30 PM CDT Office Visit [facility] [address] [phone] Jean Paul Amanda MD [place] thyroiditis (Primary Dx) from Last 3 Months Surgical History Surgery Date Site/Laterality Comments BREAST SURGERY Bilateral mass removals bilat - non cancerous HYSTERECTOMY CARDIAC CATHETERIZATION 04/12/2022 - 04/11/2023 OTHER SURGICAL HISTORY Loop recorder 07/23/22 CERVICAL SPINE SURGERY 04/12/2013 - 04/11/2014 Medical History Medical History Date Comments GERD (gastroesophageal reflux disease) Asthma Thyroid disease PONV (postoperative nausea and vomiting) Motion sickness Arrhythmia Atrial fibrillation (HCC) Heart palpitations Goiter causes difficult y swallowing at times Lorri's disease Hypothyroidism Chronic pain disorder Anxiety Depression Family History Medical History Relation Name Comments Allergy (severe) Father Dad Asthma Father Dad Hypertension Father Dad Stroke Mother's Sister Aunt Relation Name Status Comments Father Dad Mother's Sister Aunt Social History Tobacco Use Types Packs/Day Years [...] on file Legal Sex Female 4:21 PM 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 Gender Identity Not on file Sexual Orientation Straight 02/08/2024 3: 46 PM CDT Obstetrics History Last Filed Vital Signs Vital Sign Reading [...] 06/28/2024 2:02 PM CDT Plan of Treatment Health Maintenance Due Date Last Done Comments Breast Cancer Screening-Mammogram 1974 Colon Cancer Screening-Colonoscopy 1974 Depression Screening 1974 Hepatitis C Screening 1974 DTaP/Tdap/Td Vaccine (1 - Tdap) 1985 Hepatitis B Screening 02/17/1992 Regular Well Visit/Exam 18-64 02/17/1992 Pneumococcal vaccine <65 (2 of 2 - PCV) 12/12/2013 12/12/2012, 04/12/2012 Covid-19 Vaccine (4 - 2023-2 5 season) 2023 02/02/2021, 07/26/2020, 06/30/2020 Zoster Vaccine (1 of 2) 02/17/2024 Influenza Vaccine (Season Ended) 2024 02/02/2021, 01/27/2020, 10/03/2015, Additional history exists Medical Devices Implanted Type Area School Aide Device Identifier Shelf Expiration Date Model / Serial / Lot Implantable Loop Recorder Implantable Loop Recorder Left: Chest Procedures Procedure Name Priority Date/Time Associated Diagnosis Comments THYROID FUNCTION CASCADE Routine 06/28/2024 3:05 PM CDT Lorri thyroiditis from Last 3 Months Results * Thyroid Function [place] (06/28/2024 3:05 PM CDT) TSH 3.92 0.30 - 4.20 mcIUnit/mL Blood 06/28/2024 3:05 PM CDT 06/28/2024 5:31 PM CDT us Aiyana Guanaco Blanc MD LAB BLOOD ORDERABLE S Final Result Performing Organization Address City/State/[facility] Co md Phone Number [facility] [phone] [place] [address] from Last 3 Months Insurance [facility] [employer] [employer] [employer] Advance Directives For more information, please contact: [phone] * Full Code (Latest Code Status on File) Date Activated Date Inactivated Comments 01/20/2024 11:40 AM 01/20/2024 8:33 PM Care Teams Green Building Materials Designer Relationship Specialty Start Date End Date Aj Gautam PA [address] [place] [phone] PCP - General Physician Yard Manager 06/28/24
[2024-09-01 08:12] VITALS: BP 130/67; PULSE 68; RESP 16; TEMP 36.4; O2SAT 100
[2024-09-01] MEDS: LACTATED RINGERS 1,000 ML 150 ML IV CONT (08:25)
--- NOTE | 2024-09-01 08:31 | P.PNAN_ITS ---
Anes - Initial Pre Proc Eval Procedure: Operation Date: 09/01/24 09:30 Proposed Procedures p Esophagogastroduodenoscopy & Colonoscopy - Jesus Paul MD Date/Time: 09/01/24 08:31 Surgeon: Jesus Paul MD Pre Op Diagnosis: Dysphagia, unspecified, Screening Patient Data Age: 49 Gender: F Height: 1.5 m Weight: 79 kg Last Vital Signs Temp 36.4 C 09/01/24 08:12 Pulse 68 09/01/24 08:12 Resp 16 09/01/24 08:12 BP 130/67 09/01/24 08:12 Pulse Ox 100 09/01/24 08:12 O2 Del Method Room Air 09/01/24 08:12 Allergies Allergy/AdvReac Type Severity Reaction Status Date / Time hydrocodone Allergy Intermediate BLURRED Verified 09/01/24 08:10 VISION naproxen Allergy Mild Unknown Verified 09/01/24 08:10 sulfamethoxazole Allergy Mild Unknown Verified 09/01/24 08:10 trimethoprim Allergy Mild Unknown Verified 09/01/24 08:10 amoxicillin Allergy Unknown Unknown Verified 09/01/24 08:10 budesonide Allergy Unknown Unknown Verified 09/01/24 08:10 codeine Allergy Unknown Unknown Verified 09/01/24 08:10 erythromycin base Allergy Unknown Unknown Verified 09/01/24 08:10 latex Allergy Unknown Unknown Verified 09/01/24 08:10 oxycodone Allergy Unknown TEMPORARY Verified 09/01/24 08:10 BLINDNESS penicillin V Allergy Unknown Unknown Verified 09/01/24 08:10 Penicillins Allergy Unknown Unknown Verified 09/01/24 08:10 Sulfa (Sulfonamide Allergy Unknown Unknown Verified 09/01/24 08:10 Antibiotics) aspirin Allergy Difficulty Verified 09/01/24 08:10 Breathing POTASSIUM CLAVULANATE Allergy Mild Unknown Uncoded 09/01/24 08:10 FORMOTEROL FUMARATE Allergy Unknown Unknown Uncoded 09/01/24 08:10 Home Medications ?Medication ?Instructions ?Recorded ?Confirmed ?Type diltiazem HCl 60 mg 120 mg PO DAILY 06/08/23 09/01/24 History capsule,extended release 12 hr esomeprazole magnesium 20 mg 20 mg PO DAILY 06/08/23 09/01/24 History capsule,delayed release (Nexium) fluticasone furoate 200 1 inh inhalation DAILY 08/08/24 09/01/24 History mcg/actuation blister powder for inhalation isosorbide mononitrate 30 mg 30 mg PO DAILY 08/08/24 09/01/24 History tablet,extended release 24 hr loratadine 10 mg tablet (Claritin) 10 mg PO DAILY 08/08/24 09/01/24 History mkgkcywbblpl-Kb-kofl-minerals 18 1 tablet PO DAILY 08/08/24 08/28/24 History mg-0.4 mg tablet nitroglycerin 0.4 mg sublingual 0.4 mg sublingual Q5M PRN chest 08/08/24 09/01/24 History tablet pain ranolazine 500 mg 1,000 mg PO BID 08/08/24 09/01/24 History granules,extended release in packet fluticasone propionate 50 1 spray intranasal BID PRN allergy 08/28/24 09/01/24 History mcg/actuation nasal symptoms spray,suspension Patient hx anesthesia problems: post op nausea/vomiting Family hx anesthesia problems: none Results Review: All pre-operative results and documents have been reviewed as part of the pre- operative evaluation. [facility] Past Medical History Medical History Afib Chronic pain of cardiac implantable electronic device pocket after insertion of cardiac implantable electronic device (07/23/22) Screening mammogram, encounter for Implantable loop recorder present (12/30/12) MRSA carrier History of palpitations Anxiety Hypothyroidism Lorri's disease History of gastroesophageal reflux (GERD) Asthma Surgical History Surgical History History of robot-assisted laparoscopic hysterectomy (07/25/15) RA TL--menometrorrhagia, enlarged uterine--benign findings History of fusion of cervical spine (~2013) C-4, C-5, C-6 History of tubal ligation (12/01/12) History of endometrial ablation (12/01/12) hscope d&c/Novasure endometrial ablation/tubal ligation--benign History of dilation and curettage 12/01/12 hscope d&c/Novasure endometrial ablation/tubal ligation--benign 06/18/15 hscope d&c--abnormal bleeding History of left salpingo-oophorectomy (12/03/11) LLQ pain, left adnexal cyst History of breast biopsy 2008 (R) breast--benign 2012 (L) breast--benign History of tonsillectomy Family History Family History Father Hypertension Asthma Family history of arthritis Other Acute myocardial infarction maternal aunt Cerebrovascular accident maternal aunt Social History Social History Smoking status: Never smoker Second hand tobacco smoke exposure: No Alcohol intake: never Substance use: never Substance use type: does not use Do You Feel Safe in your Home?: Yes Lack of Transportation: No Lack of Food: Never True Current Housing: I Have Housing Concerned About Future Housing: No Difficulty Paying Gas/Electric Bills: No Difficulty Paying for Meds: No Currently Unemployed: YES Education: High School Diploma/GED Difficulty w/ Childcare or Family Care: No Living arrangements: with family Additional living arrangements comments: Occupation/Education: occupation 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 Gender identity (if verbalized by the patient): Female Sexual Orientation (if Verbalized by the Patient): Straight or Heterosexual Spiritual care concerns: No Anes - Eval Final PreProcedure Day of Procedure 09/01/24 08:31 Patient weight: obese Heart: regular rate and rhythm Lungs: clear to auscultation Airway: Mallampati scale class III Neurological: alert and oriented Last oral intake: >/= 8 hours ASA classification: III Emergent: no Anesthetic plan: proceed Anesthesia type and monitoring: general GIVS and standard monitoring Results Review: All pre-operative results and documents have been reviewed as part of the pre- operative evaluation. Informed Consent: The patient's anesthetic plan and its attendant risks and benefits were discussed with the patient/family/POA. Questions were solicited and answers provided to the satisfaction of the patient/family/POA.
--- NOTE | 2024-09-01 08:47 | WPDHPUPDATE1 ---
History and Physical Update Update Date/Time: 09/01/24 08:47 History and Physical has been reviewed, including an updated exam of the patient. There are NO changes in the patient's condition. Risks, benefits, and alternatives have been discussed and questions answered. Patient agrees to proceed with procedure.
--- NOTE | 2024-09-01 09:03 | SUR.OPER ---
EGD end 858, colonoscopy start 901
[2024-09-01 09:17] VITALS: BP 108/61; PULSE 73; RESP 16; O2SAT 100
--- NOTE | 2024-09-01 09:18 | SUR.OPER ---
Ascending colon polyp not retrieved, Dr. Cuevas aware
[2024-09-01 09:27] VITALS: BP 113/60; PULSE 77; RESP 20; O2SAT 100
[2024-09-01 09:37] VITALS: BP 115/61; PULSE 65; RESP 14; O2SAT 100
== END 2024-09-01 09:51 | disposition home or self-care (01) ==
PROVIDERS: PCP Physician Assistant Medical; Referring Provider Nurse Practitioner Family; Visit Provider Internal Medicine Gastroenterology
PROC: 0DJ08ZZ Inspection of Upper Intestinal Tract, Via Natural or Artificial Opening Endoscopic (ICD-10-PCS; CPT 45378; principal; 2024-09-01 09:30)
DX: Z12.11 Encounter for screening for malignant neoplasm of colon (principal); K63.5 Polyp of colon; K22.2 Esophageal obstruction; K21.9 Gastro-esophageal reflux disease without esophagitis; K44.9 Diaphragmatic hernia without obstruction or gangrene; E66.9 Obesity, unspecified; Z68.35 Body mass index [BMI] 35.0-35.9, adult
CPT/HCPCS: 45385; 43249; 43239; 88305; C1726; J2704; J7120